=== PATIENT | female | born 1985 | race Caucasian/White ===

== ENCOUNTER 2020-09-10 18:07 | Emergency (ER) | payer OTHER, SELFPAY ==
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
[2020-09-10 18:15] VITALS: BP 164/100; PULSE 94; RESP 18; TEMP 36.7; O2SAT 100; BMI 33.2
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
[2020-09-10] MEDS: Cyclobenzaprine HCl 10 MG TABLET PO (19:38)
== END 2020-09-10 20:45 | disposition home or self-care (01) ==
PROVIDERS: Emergency Provider Internal Medicine; PCP Internal Medicine
DX: S39.012A Strain of muscle, fascia and tendon of lower back, initial encounter (principal); S16.1XXA Strain of muscle, fascia and tendon at neck level, initial encounter; V43.92XA Unspecified car occupant injured in collision with other type car in traffic accident, initial encounter; Y93.9 Activity, unspecified; Y92.414 Local residential or business street as the place of occurrence of the external cause; Y99.9 Unspecified external cause status
CPT/HCPCS: 72040; 72100; 99283

== ENCOUNTER 2021-04-23 14:33 | Emergency (ER) | payer OTHER, SELFPAY ==
[2021-04-23 15:57] VITALS: BP 131/82; PULSE 112; RESP 18; TEMP 36.7; O2SAT 98; BMI 32.5
[2021-04-23 16:12] LABS: Appearance Urine CLOUDY; Color Urine YELLOW; Glucose Urine UA NEG (NEG); Leukocyte Esterase Urine 1+ (NEG); Nitrite Urine NEG (NEG); Specific Gravity - Urine 1.025 (1.005-1.025); UACC Culture Trigger YES; Urine Blood 1+ (NEG); Urine Ketones NEG (NEG); Urine Protein TRACE MG/DL (NEG-TRACE)
[2021-04-23 16:24] LABS: Bacteria Urine 1+ /LPF; Calcium Oxalate Crystals Urine 1+ /LPF; Squamous Epithelial Cell Urine 1+ /LPF
--- NOTE | 2021-04-23 16:40 | ED_ITS ---
HPI - Female Genitourinary General Chief complaint: Urogenital-Female Stated complaint: uti Time Seen by Provider: 04/23/21 16:40 Source: patient Mode of arrival: ambulatory Limitations: no limitations History of Present Illness HPI Narrative: 36-year-old female who is presenting to the emergency room today for evaluation of painful urination as well as frequent urination. She has a history of recurring UTIs and states this feels exactly like her usual UTIs. She has no nausea vomiting diarrhea or abdominal pain. She denies fevers at home. She states her symptoms have been going on for 3 or 4 days. She is very uncomfortable. MD elicited complaint: dysuria and UTI Pertinent past history: recurrent UTIs Onset (ago): day(s) (3-4) Location of symptoms: suprapubic and urethra Severity: moderate Female Urogenital Radiation: Suprapubic Severity scale (1-10): 5 Quality of pain: burning Consistency: intermittent Vaginal discharge: none Vaginal bleeding: none Urinary symptoms: Dysuria, Urgency, Frequency and Hematuria Exacerbating factors: urination Relieving factors: none Associated symptoms: denies other symptoms Treatment prior to arrival: none Sexual activity: Yes Patient : No Related Data Previous Rx's Medication Instructions Recorded cyclobenzaprine 10 mg tablet 10 mg PO TID PRN #15 tab 09/10/20 cefuroxime axetil 250 mg tablet 250 mg PO BID 7 Days #14 tab 04/23/21 phenazopyridine 100 mg tablet 100 mg PO TID PRN #6 tab 04/23/21 (Pyridium) Allergies Allergy/AdvReac Type Severity Reaction Status Date / Time Sulfa (Sulfonamide Allergy Unknown RASH Verified 04/23/21 15:56 Antibiotics) [SULFA (SULFONAMIDE ANTIBIOTICS)] sulfamethoxazole Allergy Unknown RASH Verified 04/23/21 15:56 [From BACTRIM] trimethoprim [From BACTRIM] Allergy Unknown RASH Verified 04/23/21 15:56 Bactrim Allergy Unknown itching, Uncoded 09/04/11 00:00 rash Review of Systems Review of Systems: Constitutional: No Fever, No Chills Cardiovascular: No Chest Pain, No SOB Gastrointestinal: No Nausea, No Vomiting, No abdominal Pain Genitourinary: + Dysuria, + Urinary Frequency, + Hematuria Musculoskeletal: No joint pain, No Myalgias Skin: No Skin Lesions, No rash Heme/Lymph: No Bruising, No Lymphadenopathy Endocrine: No Polyuria, No Polydipsia PMFSH Past Medical History Medical History Dog bite Methadone dependence Migraines Social History Social History Alcohol intake: never Advance Directives: No Advance Directives Information Provided: No Patient : No Physical Exam Vital Signs: Vital Signs: Last Vital Signs Temp 98.1 F 04/23/21 15:57 Pulse 112 H 04/23/21 15:57 Resp 18 04/23/21 15:57 BP 131/82 04/23/21 15:57 Pulse Ox 98 04/23/21 15:57 Body Mass Index 32.5 Appearance: Alert. Oriented X3. No acute distress. HEENT: normal inspection CVS: Normal heart rate and rhythm. Pulses normal. Respiratory: No respiratory distress. Skin: Skin warm and dry. Normal skin color. Normal skin turgor. No rashes. Abdomen: Soft and with mild suprapubic tenderness. Pelvic exam deferred Extremities: Atraumatic x4. Neuro: Oriented X 3. Grossly normal. Ambulating with steady gait. Course Course Course Narrative: 36-year-old female with a history of recurring UTIs presenting with dysuria, frequency, slightly pink urine for the last 3-4 days. No vaginal discharge or concern for STI. Heart rate noted to be 110 on arrival and has normalized now. She is afebrile does not appear to be septic at this time. She reports her elevated heart rate due to running back and forth from the ER to her car. Her UA is consistent with infection. She is requesting Pyridium. We will start her on Ceftin for 1 week and add Pyridium as needed for pain. She is encouraged to follow-up with her primary care doctor and is stable for discharge from the emergency room MDM - Female Genitourinary Lab Data Labs: Lab Results 04/23/21 Range/Units 16:02 Urine Color YELLOW Urine Appearance CLOUDY Urine pH 6.0 (5.0-8.0) Ur Specific [place] 1.025 (1.005-1.025) Urine Protein TRACE (NEG-TRACE) MG/DL Urine Glucose (UA) NEG (NEG) MG/DL Urine Ketones NEG (NEG) MG/DL Urine Blood 1+ H (NEG) Urine Nitrite NEG (NEG) Ur Leukocyte Esterase 1+ H (NEG) Urine RBC 1-4 (0) /HPF Urine WBC 15-29 H (0-4) /HPF Ur Squamous Epith Cells 1+ /LPF Calcium Oxalate Crystal 1+ /LPF Urine Bacteria 1+ /LPF Discharge Plan Discharge Clinical Impression: Urinary tract infection Qualifiers: Urinary tract infection type: acute cystitis Hematuria presence: with hematuria Qualified Code(s): N30.01 - Acute cystitis with hematuria Patient Disposition: Home, Self-Care Instructions: Urinary Tract Infection in Women (ED) Additional Instructions: Your urine test today showed infection. Take the prescribed antibiotics as directed. Drink plenty of water. No sexual activity and all other symptoms are completely resolved and he completed the entire course of antibiotics. Follow-up with your doctor as needed. Prescriptions: New phenazopyridine [Pyridium] 100 mg tablet 100 mg PO TID PRN (Reason: pain) Qty: 6 RF: 0 cefuroxime axetil 250 mg tablet 250 mg PO BID 7 Days Qty: 14 RF: 0 No Action cyclobenzaprine 10 mg tablet 10 mg PO TID PRN (Reason: muscle spasm) Qty: 15 RF: 0
== END 2021-04-23 17:13 | disposition home or self-care (01) ==
PROVIDERS: Emergency Provider Emergency Medicine Emergency Medical Services; PCP Internal Medicine
DX: N30.01 Acute cystitis with hematuria (principal); R35.0 Frequency of micturition; R30.0 Dysuria; Z87.440 Personal history of urinary (tract) infections; Z79.899 Other long term (current) drug therapy
CPT/HCPCS: 81001; 87086; 99283; 99284

== ENCOUNTER 2021-09-22 20:28 | Emergency (ER) | payer OTHER, SELFPAY ==
[2021-09-22 20:59] VITALS: BP 108/62; PULSE 95; RESP 16; TEMP 36.8; O2SAT 98; BMI 31.7
[2021-09-22 21:21] LABS: IDNOW Serial# 55D5AD1C; Strep A Nucleic Acid Positive (Negative)
--- NOTE | 2021-09-22 22:59 | ED_ITS ---
HPI - General Adult General Chief complaint: General Medical Stated complaint: Sore throat/Ear ache Time Seen by Provider: 09/22/21 22:49 Source: patient Mode of arrival: ambulatory Limitations: no limitations History of Present Illness HPI narrative: This is a 36-year-old female presenting to the emergency department with bilateral ear pain, sore throat times 2-3 days worsening. Patient tells me she gets strep throat frequently. This feels like her typical strep throat. She reports subjective fevers and chills. She denies chest pain, shortness of breath, nausea vomiting and abdominal pain. She tells me that she is able to swallow well, she is not having issues controlling her secretions. Speaking in full sentences appears to be in no acute distress. Onset (ago): day(s) (3) Location: mouth Radiation: non-radiation Severity: severe Severity scale (1-10): 10 Quality: burning and constant Pain Consistency: constant Relieving factors: none Exacerbating factors: none Associated symptoms: denies other symptoms Treatments prior to arrival: none Related Data Previous Rx's Medication Instructions Recorded cyclobenzaprine 10 mg tablet 10 mg PO TID PRN #15 tab 09/10/20 cefuroxime axetil 250 mg tablet 250 mg PO BID 7 Days #14 tab 04/23/21 phenazopyridine 100 mg tablet 100 mg PO TID PRN #6 tab 04/23/21 (Pyridium) amoxicillin 500 mg capsule 500 mg PO BID 10 Days #20 cap 09/22/21 prednisone 20 mg tablet 20 mg PO DAILY 5 Days #5 tab 09/22/21 Allergies Allergy/AdvReac Type Severity Reaction Status Date / Time Sulfa (Sulfonamide Allergy Unknown RASH Verified 04/23/21 15:56 Antibiotics) [SULFA (SULFONAMIDE ANTIBIOTICS)] sulfamethoxazole Allergy Unknown RASH Verified 04/23/21 15:56 [From BACTRIM] trimethoprim [From BACTRIM] Allergy Unknown RASH Verified 04/23/21 15:56 Bactrim Allergy Unknown itching, Uncoded 09/04/11 00:00 rash Review of Systems Review of Systems: Constitutional : No Weight loss, No Fever, No Chills, No Fatigue, No Malaise ENT/Mouth : + sore throat, No Rhinorrhea Eyes: No Eye Pain, No Swelling, No Redness Cardiovascular : No Chest Pain, No SOB, No Dyspnea on Exertion, No Orthopnea, No Edema, No Palpitations Respiratory : No Cough, No Sputum, No Wheezing Gastrointestinal : No Nausea, No Vomiting, No Diarrhea, No Constipation, No abdominal Pain, No Hematochezia, No Melena Genitourinary : No Dysuria, No Urinary Frequency, No Hematuria, Musculoskeletal : No joint pain, No Myalgias, No Joint Swelling Skin : No Skin Lesions, No rash Neuro : No Weakness, No Numbness, No Dizziness, No Headache Psych : No Anxiety/Panic, No Depression All other systems reviewed and are negative Yes all other systems are reviewed and are negative [facility] [place] Past Medical History Attestation statement: The following information was validated with the patient. Source: old records reviewed and nursing notes reviewed Medical History Dog bite Methadone dependence Migraines Social History Social History Alcohol intake: never Advance Directives: No Advance Directives Information Provided: No Patient : No Physical Exam ED Vital Signs: Vital Signs - 24 hr 09/22/21 20:59 Temperature 98.3 F Pulse Rate 95 Respiratory Rate 16 Blood Pressure 108/62 Pulse Oximetry 98 BMI result Body Mass Index 31.7 Appearance: Alert.? Oriented X3.? No acute distress.? Patient speaking in full sentences controlling secretions well appears to be comfortable and in no acute distress. Head: Normocephalic, atraumatic, no step-offs or deformities Eyes: Pupils equal, round and reactive to light.? ENT: + bilateral tonsillar exudates, edema to bilateral tonsils right worse than left. Submandibular adenopathy bilaterally. Bilateral tympanic membranes pearly white, clear landmarks, nor erythema, effusions or bulging of the tympanic membranes. Uvula is midline. No signs of peritonsillar abscess. No signs of epiglottitis. Neck: Normal inspection.? Neck supple.? CVS: Normal heart rate and rhythm.? Pulses normal.? Respiratory: No respiratory distress.? Breath sounds normal.? Abdomen: Soft and nontender.? Skin: Skin warm and dry.? Normal skin color.? Normal skin turgor.? Extremities: No lower extremity edema.? No calf ttp. 5/5 strength to bilateral upper and lower extremities Back: No midline tenderness, no C-spine tenderness, full range of motion, no CVA tenderness bilaterally Neuro: Oriented X 3.? No motor deficit.? No sensory deficit. CN 2-12 intact Course Reevaluation(s) Reevaluation #1: Rapid strep positive. Will treat patient for bacterial pharyngitis. Given her strict return precautions and advised her to return with new or worsening symptoms. Outlined these return precautions on her discharge. Educated patient on plan answered all questions. Comfortable discharge home. Time: 23:05 Medical Decision Making [facility] Narrative Medical decision making narrative: 2300 36 yo f presents w/ sore throat and subjective fevers and chills X3 days. Frequently gets strep throat. Physical examination with bilateral tonsillar exudates, edema to bilateral tonsils right worse than left. Submandibular adenopathy bilaterally. Bilateral tympanic membranes pearly white, clear landmarks, nor erythema, effusions or bulging of the tympanic membranes. Uvula is midline. No signs of peritonsillar abscess. No signs of epiglottitis. Based off patient history and physical examination this is likely strep throat. Will confirm with rapid strep. Unlikely epiglottitis or peritonsillar abscess. Low suspicion for mononucleosis. Plan at this time is to obtain a rapid strep. Medical Records Medical records reviewed: Yes I reviewed the patient's medical records. Lab Data Lab results reviewed: Yes I reviewed the patient's lab results. Labs: Lab Results 09/22/21 Range/Units 21:07 S. pyogenes GrpA SHAYY Positive A (Negative) Critical Care Time Critical Care Time Critical Care Time: No Discharge Plan Discharge Clinical Impression: Strep pharyngitis Patient Disposition: Home, Self-Care Instructions: Pharyngitis (ED), Strep Throat (DC) Additional Instructions: Take your medications as prescribed. If you were prescribed antibiotics today, it is important that you take your medication to their entirety, do not skip any doses, do not finish them early. Follow-up with your primary care provider this week. Return to the emergency department with new or worsening symptoms. Such as difficulty breathing, trouble swallowing, chest pain, shortness of breath, fevers, chills, nausea vomiting. You can take ibuprofen every 6 hours Tylenol every 4 as needed for pain or fever. In case of emergency call 911 Prescriptions: New amoxicillin 500 mg capsule 500 mg PO BID 10 Days Qty: 20 0RF prednisone 20 mg tablet 20 mg PO DAILY 5 Days Qty: 5 0RF No Action cyclobenzaprine 10 mg tablet 10 mg PO TID PRN (Reason: muscle spasm) Qty: 15 0RF phenazopyridine [Pyridium] 100 mg tablet 100 mg PO TID PRN (Reason: pain) Qty: 6 0RF cefuroxime axetil 250 mg tablet 250 mg PO BID 7 Days Qty: 14 0RF Referrals: Mechelle Patel MD [Primary Care Provider] - 2 days Stand Alone Forms: Work/School Release
[2021-09-22] MEDS: Lidocaine HCl Viscous 2 % 15 ML SOLUTION MUCOUS MEM (23:12)
--- NOTE | 2021-09-22 23:16 | PC.NURSE ---
Reviewed discharge instructions with pt. pt verbalized understanding.
== END 2021-09-22 23:17 | disposition home or self-care (01) ==
PROVIDERS: Emergency Provider Emergency Medicine Emergency Medical Services; PCP Internal Medicine
DX: J02.0 Streptococcal pharyngitis (principal); H92.03 Otalgia, bilateral; Z79.899 Other long term (current) drug therapy
CPT/HCPCS: 36415; 87651; 99283

== ENCOUNTER 2022-02-02 01:36 | Emergency (ER) | payer OTHER, SELFPAY ==
[2022-02-02 02:43] VITALS: BP 129/77; PULSE 71; RESP 20; TEMP 36.8; O2SAT 97; BMI 31.9
[2022-02-02 02:53] LABS: Hematocrit 40.6 % (37.0-47.0); Hemoglobin 13.5 g/dl (12.0-16.0); Mean Corpuscular HGB Conc 33.3 g/dl (31.0-35.0); Mean Corpuscular Hemoglobin 29.7 pg (27.0-33.0); Mean Corpuscular Volume 89.2 fL (80.0-98.0); Mean Platelet Volume 9.7 fL (9.4-12.3); Platelet Count 254 X10*3/uL (160-400); Red Blood Count 4.55 X10*6/uL (4.20-5.50); Red Cell Distribution Width 13.9 % (11.0-16.0); White Blood Count 9.1 X10*3/uL (4.8-10.8)
[2022-02-02 03:14] LABS: Alanine Aminotransferase 31 U/L (0-31); Albumin Level 4.1 g/dL (3.5-5.0); Alkaline Phosphatase 77 U/L (39-117); Anion Gap 13 (12-20); Aspartate Amino Transferase 30 U/L (5-31); Bilirubin Total 0.3 mg/dL (0.0-1.0); Blood Urea Nitrogen 11 mg/dL (9-16); Calcium 8.9 mg/dL (8.4-10.2); Carbon Dioxide 22 mmol/L (22-29); Chloride 106 mmol/L (96-108); Creatinine Clr Calc Pharmacy 109.1; Estimated Glomerular Filt Rate > 60; Glucose Random 138 mg/dL (60-115); Potassium 3.7 mmol/L (3.3-5.1); Sodium 137 mmol/L (135-145); Total Protein 7.2 g/dL (6.5-8.0)
--- NOTE | 2022-02-02 08:06 | ED_ITS ---
HPI - Animal Bite General Chief Complaint: Animal Bite Stated Complaint: L foot swollen,legs swelling post vascular surgery Time Seen by Provider: 02/02/22 07:48 Source: patient Mode of arrival: ambulatory Limitations: no limitations History of Present Illness HPI narrative: Left foot spider bite with infection. Two days ago patient was bitten by spider, patient also been complaining of edema of both legs, patient been having issue with vascular disease and lower extremities chronic edema, patient declined any recent travel, no pain in the [place] for, no difficulty breathing, no chest pain. Related Data Previous Rx's Medication Instructions Recorded cyclobenzaprine 10 mg tablet 10 mg PO TID PRN muscle spasm #15 09/10/20 tabs cefuroxime axetil 250 mg tablet 250 mg PO BID 7 days #14 tabs 04/23/21 phenazopyridine 100 mg tablet 100 mg PO TID PRN pain 6 doses #6 04/23/21 (Pyridium) tabs amoxicillin 500 mg capsule 500 mg PO BID 10 days #20 caps 09/22/21 prednisone 20 mg tablet 20 mg PO DAILY 5 days #5 tabs 09/22/21 doxycycline hyclate 100 mg tablet 100 mg PO BID #20 tabs 02/02/22 furosemide 20 mg tablet (Lasix) 20 mg PO DAILY #10 tabs 02/02/22 Allergies Allergy/AdvReac Type Severity Reaction Status Date / Time Sulfa (Sulfonamide Allergy Unknown RASH Verified 04/23/21 15:56 Antibiotics) [SULFA (SULFONAMIDE ANTIBIOTICS)] sulfamethoxazole Allergy Unknown RASH Verified 04/23/21 15:56 [From BACTRIM] trimethoprim [From BACTRIM] Allergy Unknown RASH Verified 04/23/21 15:56 Bactrim Allergy Unknown itching, Uncoded 09/04/11 00:00 rash Review of Systems Review of Systems: All other systems are reviewed and are negative Constitutional: Reports as per HPI and Reports no additional constitutional complaints Eyes: Reports as per HPI and Reports no additional eye complaints Reports system reviewed and no additional complaints, except as documented Cardiovascular: Reports as per HPI and Reports no additional cardiovascular complaints Respiratory: Reports as per HPI and Reports no additional respiratory complaints Gastrointestinal: Reports as per HPI and Reports no additional gastrointestinal complaints Genitourinary: Reports no additional female genitourinary complaints Musculoskeletal: Reports no additional musculoskeletal complaints Skin/Breast: Reports system reviewed and no additional complaints, except as docu Psychiatric: Reports no additional psychiatric complaints Endocrine: Reports no additional endocrine complaints Hematologic/Lymphatic: Reports no additional hematologic/lymphatic complaints Allergic/Immunologic: Reports no additional allergic/immunologic complaints Reports system reviewed and no additional complaints, except as documented and Reports Abnormal speech present [facility] Past Medical History Medical History Dog bite Methadone dependence Migraines Social History Social History Alcohol intake: never Advance Directives: No Advance Directives Information Provided: No Physical Exam ED Vital Signs: Vital Signs - 24 hr 02/02/22 02:43 Temperature 98.2 F Pulse Rate 71 Respiratory Rate 20 Blood Pressure 129/77 Pulse Oximetry 97 Oxygen Delivery Method Room Air BMI result Body Mass Index 31.9 Vital signs have been reviewed as appeared to be correct. Blood pressure normal. Heart rate normal. Respiration rate normal. Temperature normal. Oxygen saturation normal. Appearance: Alert. Oriented X3. No acute distress. Head: Normal external exam. Normocephalic. Atraumatic. No Wagner signs noted. No raccoon eyes noted Eyes: PERRLA. EOMI. Conjunctiva and sclera normal. Eyelids normal. ENT: TM's Normal. Pharynx normal. Uvula midline. Moist mucous membranes. No trismus noted. No drooling noted. No muffled voice noted. Neck: Normal inspection. Neck supple. FROM. No adenopathy. Thyroid Normal. No meningeal signs. No neck mass noted. CVS: Normal heart rate and rhythm. Heart sound normal. No murmurs noted. Pulses normal throughout. Respiratory: No respiratory distress. Painless inspiration. Breath sounds normal. No wheezes/rales/rhonchi noted. Chest nontender. No accessory muscle usage noted or decreased air movement noted. Abdomen: Soft and nontender. Bowel sounds normal in all 4 quadrants. No distention noted. No organomegaly noted. No visible injury noted. Back: No CVA tenderness. Full range of motion noted. Skin: Skin warm and dry. Normal skin color. Normal skin turgor. No rashes/lesions/lacerations noted. Extremities: Left foot swelling, 5 x 5 cm area of redness and hotness and tenderness, no fluctuation. Neuro: Oriented X 3. Cranial nerve exam: II-XII are grossly intact No motor deficit. No sensory deficit. Reflexes normal. Course Course Course Narrative: 1. Left leg spider bite infection with cellulitis will start the patient on doxycycline. 2. Chronic lymphedema in bilateral feet with no concern of DVT will start the patient on low-dose of daily Lasix and follow-up with PCP. MDM - Animal Bite Lab Data Result diagrams: 02/02/22 02:41 02/02/22 02:41 Labs: Lab Results 02/02/22 02/02/22 Range/Units 02:41 02:41 WBC 9.1 (4.8-10.8) X10*3/uL RBC 4.55 (4.20-5.50) X10*6/uL Hgb 13.5 (12.0-16.0) g/dl Hct 40.6 (37.0-47.0) % MCV 89.2 (80.0-98.0) fL MCH 29.7 (27.0-33.0) pg MCHC 33.3 (31.0-35.0) g/dl RDW 13.9 (11.0-16.0) % Plt Count 254 (160-400) X10*3/uL MPV 9.7 (9.4-12.3) fL Absolute Nucleated RBC 0.000 (0.0-0.012) X10*3/uL Nucleated RBC % (auto) 0.0 (0.0-0.2) /100WBC Sodium 137 (135-145) mmol/L Potassium 3.7 (3.3-5.1) mmol/L Chloride 106 (96-108) mmol/L Carbon Dioxide 22 (22-29) mmol/L Anion Gap 13 (12-20) BUN 11 (9-16) mg/dL Creatinine 0.68 (0.5-1.4) mg/dL Estim Creat Clear Calc 109.1 Estimated GFR > 60 Random Glucose 138 H (60-115) mg/dL Calcium 8.9 (8.4-10.2) mg/dL Total Bilirubin 0.3 (0.0-1.0) mg/dL AST 30 (5-31) U/L ALT 31 (0-31) U/L Alkaline Phosphatase 77 (39-117) U/L Total Protein 7.2 (6.5-8.0) g/dL Albumin 4.1 (3.5-5.0) g/dL Discharge Plan Discharge Clinical Impression: Infected insect bite, Leg edema Patient Disposition: Home, Self-Care Instructions: Cellulitis (ED) Prescriptions: New doxycycline hyclate 100 mg tablet 100 mg PO BID Qty: 20 0RF furosemide [Lasix] 20 mg tablet 20 mg PO DAILY Qty: 10 0RF No Action cyclobenzaprine 10 mg tablet 10 mg PO TID PRN (Reason: muscle spasm) Qty: 15 0RF phenazopyridine [Pyridium] 100 mg tablet 100 mg PO TID PRN (Reason: pain) Qty: 6 0RF cefuroxime axetil 250 mg tablet 250 mg PO BID 7 Days Qty: 14 0RF amoxicillin 500 mg capsule 500 mg PO BID 10 Days Qty: 20 0RF prednisone 20 mg tablet 20 mg PO DAILY 5 Days Qty: 5 0RF Referrals: Mechelle Patel MD [Primary Care Provider] -
[2022-02-02 08:11] VITALS: BP 117/68; PULSE 70; RESP 19; TEMP 36.5; O2SAT 99
== END 2022-02-02 08:35 | disposition home or self-care (01) ==
PROVIDERS: Emergency Provider Emergency Medicine; PCP Internal Medicine
DX: S80.862A Insect bite (nonvenomous), left lower leg, initial encounter (principal); W57.XXXA Bitten or stung by nonvenomous insect and other nonvenomous arthropods, initial encounter; L03.116 Cellulitis of left lower limb; R60.0 Localized edema; Z79.899 Other long term (current) drug therapy; Y93.9 Activity, unspecified; Y92.9 Unspecified place or not applicable; Y99.9 Unspecified external cause status
CPT/HCPCS: 36415; 80053; 85027; 99283

== ENCOUNTER 2022-09-11 00:58 | Inpatient (IN) | payer OTHER, SELFPAY ==
--- NOTE | ~2022-09-11 | CT_ITS ---
EXAMINATION: CT FOREARM WITH CONTRAST, RIGHT CLINICAL INFORMATION: Necrotizing fasciitis. Question abscess. COMPARISON: None TECHNIQUE: Contiguous axial CT images of the right forearm were obtained following the IV administration of 85 mL Omnipaque 350 contrast. Multiplanar reformats were provided and reviewed. This CT examination was performed using dose optimization techniques as appropriate, variously including the following: *Automated exposure control *Adjustment of mA and/or kV according to patient size (this includes techniques or standardized protocols for targeted exams where dose is matched to indication/reason for exam; i.e. extremities or head) *Use of iterative reconstruction technique DLP: 148 mGy-cm FINDINGS: No acute fracture or dislocation. No joint space narrowing or marginal osteophytes. No concerning lytic or blastic osseous lesion. No periosteal reaction or cortical erosion to suggest osteomyelitis. In the region of the basilic vein at the level of the distal ulnar diaphysis, there is a peripherally enhancing fluid collection measuring approximately 1.6 x 1.2 x 2.9 cm (AP x mL x cc). Findings are consistent with abscess formation. No associated soft tissue air/emphysema. There is adjacent subcutaneous stranding with mild circumferential subcutaneous edema. No enhancing soft tissue mass. Otherwise, the visualized vasculature appears unremarkable. The visualized muscles and tendons are grossly intact. CT/CT forearm RT w IV con IMPRESSION: Peripherally enhancing fluid collection in the region of the basilic vein at the level of the distal ulnar diaphysis measuring up to 2.9 cm in greatest dimension. Findings are consistent with abscess formation. No associated soft tissue air/emphysema. No acute osseous abnormality. No periosteal reaction or cortical erosion to suggest osteomyelitis.
[2022-09-11 01:33] VITALS: BP 127/72; PULSE 104; RESP 20; TEMP 36.6; O2SAT 98; BMI 32.5
[2022-09-11 02:55] LABS: Alanine Aminotransferase 46 U/L (0-31); Albumin Level 4.1 g/dL (3.5-5.0); Alkaline Phosphatase 94 U/L (39-117); Anion Gap 13 (12-20); Aspartate Amino Transferase 37 U/L (5-31); Bilirubin Total 0.5 mg/dL (0.0-1.0); Blood Urea Nitrogen 9 mg/dL (9-16); Calcium 9.3 mg/dL (8.4-10.2); Carbon Dioxide 23 mmol/L (22-29); Chloride 104 mmol/L (96-108); Creatinine Clr Calc Pharmacy 97.7; Estimated Glomerular Filt Rate > 60; Glucose Random 126 mg/dL (60-115); Potassium 4.2 mmol/L (3.3-5.1); Sodium 136 mmol/L (135-145); Total Protein 7.6 g/dL (6.5-8.0)
--- NOTE | 2022-09-11 03:29 | ED_ITS ---
HPI - General Adult General Chief complaint: Animal Bite Stated complaint: swollen arm & rash Time Seen by Provider: 09/11/22 03:15 Source: patient Mode of arrival: ambulatory Limitations: no limitations History of Present Illness HPI narrative: Patient IVDA cocaine user noticed swelling of the right forearm for last 3 days got worse in last 24 hours spreading to the elbow no fever no chills last injection in the right forearm was 4 days ago no pain in the hand or elbow. Patient also noticed rash is all over exposed area patient was at her friend's house who has Dog Related Data Previous Rx's Medication Instructions Recorded cyclobenzaprine 10 mg tablet 10 mg PO TID PRN muscle spasm #15 09/10/20 tabs cefuroxime axetil 250 mg tablet 250 mg PO BID 7 days #14 tabs 04/23/21 phenazopyridine 100 mg tablet 100 mg PO TID PRN pain 6 doses #6 04/23/21 (Pyridium) tabs amoxicillin 500 mg capsule 500 mg PO BID 10 days #20 caps 09/22/21 prednisone 20 mg tablet 20 mg PO DAILY 5 days #5 tabs 09/22/21 doxycycline hyclate 100 mg tablet 100 mg PO BID #20 tabs 02/02/22 furosemide 20 mg tablet (Lasix) 20 mg PO DAILY #10 tabs 02/02/22 Allergies Allergy/AdvReac Type Severity Reaction Status Date / Time Sulfa (Sulfonamide Allergy Unknown RASH Verified 09/11/22 01:43 Antibiotics) [SULFA (SULFONAMIDE ANTIBIOTICS)] sulfamethoxazole Allergy Unknown RASH Verified 09/11/22 01:43 [From BACTRIM] trimethoprim [From BACTRIM] Allergy Unknown RASH Verified 09/11/22 01:43 Bactrim Allergy Unknown itching, Uncoded 09/04/11 00:00 rash Review of Systems Review of Systems: Yes all other systems are reviewed and are negative PMFSH Past Medical History Medical History Dog bite Methadone dependence Migraines Social History Social History Alcohol intake: current Smoked in Last 30 Days: Yes Use of substances other than those prescribed or required for medical reasons: Yes Substance Use Type: Heroin Advance Directives: No Advance Directives Information Provided: Yes Physical Exam ED Vital Signs: Vital Signs - 24 hr 09/11/22 01:33 Temperature 97.9 F Pulse Rate 104 H Respiratory Rate 20 Blood Pressure 127/72 Pulse Oximetry 98 Oxygen Delivery Method Room Air BMI result Body Mass Index 32.5 Appearance: Alert. Oriented X3. No acute distress. Eyes: PERRLA, No Nystagmus ENT: Pharynx normal. Oral Mucosa moist Neck: Normal inspection. Neck supple. CVS: Normal heart rate and rhythm. Pulses normal. Respiratory: No respiratory distress. Equal air entry bilateral, no wheezing/rales/rhonchi Abdomen: Soft and nontender. Bowel sounds are present, no mass palpable, no CVA tenderness Skin: Skin warm and dry. Normal skin color. Normal skin turgor. Insect bite on exposed area Extremities: No lower extremity edema. No calf tenderness right forearm swollen with induration and warmth elbow joint normal good range of movement hand good range of movement patient can make fist Neuro: Oriented X 3. No motor deficit. Extrem Elbow/forearm/wrist images: 1. Fullness and swelling of right forearm tender to touch local warmth good range of movements of elbow joint and wrist no hypersensitivity neurovascular intact Medications Administered Discontinued Medications Generic Name Dose Route Start Last Admin Trade Name Freq PRN Reason Stop Dose Admin Diphenhydramine HCl 25 mg 09/11/22 04:20 09/11/22 04:41 Diphenhydramine Hcl 50 Mg/Ml Vial IVPUSH 09/11/22 04:21 25 mg ONCE ONE Administration Sodium Chloride 1,000 mls @ 999 mls/hr 09/11/22 03:30 09/11/22 04:41 Ns IV 09/11/22 04:30 999 mls/hr .Q1H1M ONE Administration Vancomycin HCl 2,000 mg in 520 mls @ 260 mls/hr 09/11/22 03:45 09/11/22 04:42 Vancomycin/Ns IV 09/11/22 05:44 260 mls/hr ONCE ONE Administration Piperacillin Sod/Tazobactam 50 mls @ 100 mls/hr 09/11/22 03:31 09/11/22 04:41 Sod 3.375 gm/ Sodium Chloride IV 09/11/22 04:00 100 mls/hr ONCE ONE Administration Iohexol 85 ml 09/11/22 07:35 09/11/22 07:36 Iohexol 350 Mg/Ml 100 Ml Infus..Btl IV 09/11/22 07:36 85 ml ONCE ONE Administration Procedures Abscess I/D Site: upper extremity Side (if applicable): right Technique: needle aspiration Amount of fluid expressed (mL): 3 Sent for culture/gram staining?: Yes Irrigation: No Packing used?: none Medical Decision Making Medical Decision Making [facility] Narrative: Needle aspiration of forearm abscess was done and 3 cc of pus drained at this time there is no findings of compartment syndrome diffuse swelling is present will start patient on vancomycin and Zosyn 7 am patient with normal CBC normal lactic acid but significant swelling of the right forearm with abscess and cellulitis abscess drained by needle aspiration. Will do CT scan of the forearm to rule out the deeper fluid collection at this time with no signs of necrotizing fasciitis or compartment syndrome . Case discussed with hospitalist will admit the patient will also give tetanus shot Differential Diagnosis Differential Diagnoses: The differential diagnosis associated with the presentation includes Cellulitis/abscess/necrotizing fasciitis Consult Healthcare Provider Management of the patient was discussed with: Hospitalist Lab Data [facility] Lab Attestation statement: I reviewed the patient's lab results. 09/11/22 02:32 09/11/22 02:32 Labs: Lab Results 09/11/22 09/11/22 09/11/22 Range/Units 02:32 03:59 05:20 WBC 9.5 (4.8-10.8) X10*3/uL RBC 4.10 L (4.20-5.50) X10*6/uL Hgb 12.6 (12.0-16.0) g/dl Hct 37.5 (37.0-47.0) % MCV 91.5 (80.0-98.0) fL MCH 30.7 (27.0-33.0) pg MCHC 33.6 (31.0-35.0) g/dl RDW 13.7 (11.0-16.0) % Plt Count 260 (160-400) X10*3/uL MPV 10.3 (9.4-12.3) fL Immature Gran % (Auto) 0.3 (0.0-0.4) % Neut % (Auto) 48.1 (45-73) % Lymph % (Auto) 43.1 H (20-40) % [place] % (Auto) 6.4 (2-11) % Eos % (Auto) 1.8 (0-4) % Baso % (Auto) 0.3 (0-2) % Lymph # (Auto) 4.1 (1.2-4.9) X10*3/uL [place] # (Auto) 0.6 (0.1-1.2) X10*3/uL Eos # (Auto) 0.2 (0.0-0.4) X10*3/uL Baso # (Auto) 0.0 (0.0-0.2) X10*3/uL Abs Immat Gran (auto) 0.03 (0.00-0.03) X10*3/uL Absolute Neuts (auto) 4.6 (2.0-8.3) x10*3/uL Absolute Nucleated RBC 0.000 (0.0-0.012) X10*3/uL Nucleated RBC % (auto) 0.0 (0.0-0.2) /100WBC Sodium 136 (135-145) mmol/L Potassium 4.2 (3.3-5.1) mmol/L Chloride 104 (96-108) mmol/L Carbon Dioxide 23 (22-29) mmol/L Anion Gap 13 (12-20) BUN 9 (9-16) mg/dL Creatinine 0.76 (0.5-1.4) mg/dL Estim Creat Clear Calc 97.7 Estimated GFR > 60 Random Glucose 126 H (60-115) mg/dL Lactic Acid 1.0 (0.5-2.0) mmol/L Calcium 9.3 (8.4-10.2) mg/dL Total Bilirubin 0.5 (0.0-1.0) mg/dL AST 37 H (5-31) U/L ALT 46 H (0-31) U/L Alkaline Phosphatase 94 (39-117) U/L Total Creatine Kinase 61 (26-140) U/L Total Protein 7.6 (6.5-8.0) g/dL Albumin 4.1 (3.5-5.0) g/dL Discharge Plan Discharge Clinical Impression: Abscess of forearm, right, Cellulitis of forearm, right Patient Disposition: Admitted As Inpatient
[2022-09-11] MEDS: 0.9 % Sodium Chloride 1,000 ML 999 ML IV (04:41)
[2022-09-11] MEDS: Piperacillin Sodium/Tazobactam 3.375 GM in 0.9 % Sodium Chloride 50 ML IV (04:41)
[2022-09-11] MEDS: diphenhydrAMINE HCL 50 MG/ML VIAL 25 MG IVPUSH ×3 (04:41→21:54)
--- NOTE | 2022-09-11 04:53 | PC.NURSE ---
I assumed nursing care of Adali upon her arrival to bed 14 from the waiting room. She presented for evaluation of abscess to R forearm and generalized body pruritis. She states i slept over at a friends house last night and the night before. I don't know if i got bed bugs or something. Consuelo ORNELAS aware. Adali is alert, oriented x 3, calm and cooperative. She makes eye contact with RN. She is ambulatory independently and with steady gait. Prior to meeting this pt she was assessed by Consuelo ORNELAS who obtained a wound culture from R forearm wound. Specimen was sent to the lab. At that time Consuelo ORNELAS was attempting to obtain a peripheral IV via ultrasound guidance. After some time he was able to obtain a L A/C #20 gauge. IVF's/IVAbx infusing per MD order. No chest pain. No SOB. We will continue to monitor Adali.
[2022-09-11 05:33] LABS: Basophils Percent Auto 0.3 % (0-2); Eosinophils Absolute Auto 0.2 X10*3/uL (0.0-0.4); Eosinophils Percent Auto 1.8 % (0-4); Hematocrit 37.5 % (37.0-47.0); Hemoglobin 12.6 g/dl (12.0-16.0); Imm Gran Abs Auto 0.03 X10*3/uL (0.00-0.03); Imm Gran Pct Auto 0.3 % (0.0-0.4); Lymphocytes Absolute Auto 4.1 X10*3/uL (1.2-4.9); Lymphocytes Percent Auto 43.1 % (20-40); Mean Corpuscular HGB Conc 33.6 g/dl (31.0-35.0); Mean Corpuscular Hemoglobin 30.7 pg (27.0-33.0); Mean Corpuscular Volume 91.5 fL (80.0-98.0); Mean Platelet Volume 10.3 fL (9.4-12.3); Monocytes Absolute Auto 0.6 X10*3/uL (0.1-1.2); Monocytes Percent Auto 6.4 % (2-11); Neutrophils Absolute Auto 4.6 x10*3/uL (2.0-8.3); Neutrophils Percent Auto 48.1 % (45-73); Platelet Count 260 X10*3/uL (160-400); Red Cell Distribution Width 13.7 % (11.0-16.0); White Blood Count 9.5 X10*3/uL (4.8-10.8)
[2022-09-11 05:35] LABS: MANUAL DIFF FLAG NO
[2022-09-11] MEDS: iohexoL 350 MG/ML 100 ML INFUS..BTL 85 ML IV (07:36)
[2022-09-11 08:01] LABS: COVID-19 Test Negative (Negative); IDNOW Serial# BCCEAD1C
--- NOTE | 2022-09-11 08:22 | PHA.MEDREC ---
Pharmacy Consult ? Medication Reconciliation Pharmacy has completed the medication reconciliation. Patient states no home meds.
[2022-09-11] MEDS: Diphth,Pertus(ACell),Tet Adult 0.5 ML SYRINGE IM (08:24)
--- NOTE | 2022-09-11 08:41 | P.HPHOSP_ITS ---
History of Present Illness Date of Service: 09/11/22 Chief Complaint: right forearm pain and swelling 37F PMH opiate and cocaine dependence, uses IV, presented with 2 days right forearm swelling, pain, tenderness, ertyhema. pateint reports injecting into that arm. denies fever, chills. in ED I and D revealed pus, CT arm pending, not septic. Review of Systems Review of Systems: Yes all other systems are reviewed and are negative [facility] Medical History Dog bite Methadone dependence Migraines Social History Alcohol intake: current Smoked in Last 30 Days: Yes Use of substances other than those prescribed or required for medical reasons: Yes Substance Use Type: Heroin Advance Directives: No Advance Directives Information Provided: Yes Meds Allergies Allergy/AdvReac Type Severity Reaction Status Date / Time Sulfa (Sulfonamide Allergy Unknown RASH Verified 09/11/22 01:43 Antibiotics) [SULFA (SULFONAMIDE ANTIBIOTICS)] sulfamethoxazole Allergy Unknown RASH Verified 09/11/22 01:43 [From BACTRIM] trimethoprim [From BACTRIM] Allergy Unknown RASH Verified 09/11/22 01:43 Active Medications: Current Medications Pharmacy Consult (Consult Rx Perform Med Rec) 1 each MISCELLANE ONCE PRN PRN Reason: Consult order Home Medications Medication Instructions Recorded Confirmed Last Taken Type No Known Home Meds 09/11/22 09/11/22 Unknown History Physical Exam Vital Signs and Narrative: Vital Signs: Last Vital Signs Temp 97.9 F 09/11/22 01:33 Pulse 104 H 09/11/22 01:33 Resp 20 09/11/22 01:33 BP 127/72 09/11/22 01:33 Pulse Ox 98 09/11/22 01:33 O2 Del Method 09/11/22 01:33 BMI result Body Mass Index 32.5 General: AO X 3, no acute distress Resp: CTA bilateral, no accessory muscles used CVS: S1,S2,RRR GI: soft, non tender, non distended Neuro: motor grossly intact, alert Psych: appropriate affect, appropriate insight right forearm tender, swollen, erythema Results Labs 09/11/22 05:20 09/11/22 02:32 Labs: Laboratory Results - last 24 hr 09/11/22 09/11/22 09/11/22 02:32 03:59 05:20 MCV 91.5 MCH 30.7 MCHC 33.6 RDW 13.7 Plt Count 260 MPV 10.3 Immature Gran % (Auto) 0.3 Neut % (Auto) 48.1 Lymph % (Auto) 43.1 H [place] % (Auto) 6.4 Eos % (Auto) 1.8 Baso % (Auto) 0.3 Lymph # (Auto) 4.1 [place] # (Auto) 0.6 Eos # (Auto) 0.2 Baso # (Auto) 0.0 Abs Immat Gran (auto) 0.03 Absolute Neuts (auto) 4.6 Absolute Nucleated RBC 0.000 Nucleated RBC % (auto) 0.0 Anion Gap 13 Estim Creat Clear Calc 97.7 Estimated GFR > 60 Random Glucose 126 H Lactic Acid 1.0 Calcium 9.3 Total Bilirubin 0.5 AST 37 H ALT 46 H Alkaline Phosphatase 94 Total Creatine Kinase 61 Total Protein 7.6 Albumin 4.1 COVID-19 (BRENDAN) COVID-19 Clin Com 09/11/22 07:36 MCV MCH MCHC RDW Plt Count MPV Immature Gran % (Auto) Neut % (Auto) Lymph % (Auto) [place] % (Auto) Eos % (Auto) Baso % (Auto) Lymph # (Auto) [place] # (Auto) Eos # (Auto) Baso # (Auto) Abs Immat Gran (auto) Absolute Neuts (auto) Absolute Nucleated RBC Nucleated RBC % (auto) Anion Gap Estim Creat Clear Calc Estimated GFR Random Glucose Lactic Acid Calcium Total Bilirubin AST ALT Alkaline Phosphatase Total Creatine Kinase Total Protein Albumin COVID-19 (BRENDAN) Negative COVID-19 Clin Com See Note Assessment and Plan (1) Abscess of forearm, right: Status: Acute Plan 37F polysubtance dependence presented with right forearm pain and swelling right forearm abscess and cellulitis due to IVDA vanc, follow up cultures, follow up CT polysubtances dependence addiction eval elevated transaminases check for viral hepatitis and hiv obesity weight loss recommended dvt prophylaxis - lovenox full code patient with significant forearm celluliitis complicated by abscess, risk for bacteremia and sepsis due to ivda, therefore, expected to require atleast 2 midnights inpatient Time Spent With Patient Time: Total time managing care of this patient today ____ minutes. Quality Stroke Does the patient have a stroke diagnosis?: No VTE Prior VTE?: No VTE Risk Level:: Medical - moderate - high VTE Device Contraindication: Treatment Not Indicated VTE Drug Contraindication: N/A - Med Ordered
--- NOTE | 2022-09-11 08:58 | PHA.PROG ---
Admission Date/Time: September 11, 2022 08:40 Indication: skin Weight in k.018 kg Adjusted body weight in Kg: [place] body weight in Kg: Obesity Dosing Indication % IBW: Serum Creatinine - Last 168 Hours 09/11/22 02:32 Creatinine 0.76 Estimated CrCl and GFR - Last 168 Hours 09/11/22 02:32 Estim Creat Clear Calc 97.7 Estimated GFR > 60 Vancomycin Loading Dose: 2000mg x 1 Current Vancomycin Dosing Regimen: 750mg Q12H Vancomycin Monitoring using AUC goal of 400 - 600 range with trough as surrogate marker: 408mg/L Date and Time for next Vancomycin Level to be drawn: 09/12/22 @ 1500 Pharmacist Comments on Vancomycin Plan: using obese model, will ocntinue to monitor. predicted trough of 12.1 Vancomycin dosing will take advantage of [employer] as a clinical decision support tool that uses Bayesian modeling to calculate individual patient's pharmacokinetic parameters and forecast the patient's drug concentration time course with the target goal AUC 24 range of 400 - 600 mg/L/hr.
[2022-09-11 09:02] VITALS: BP 115/50; PULSE 80; RESP 16; TEMP 36.9; O2SAT 99
--- NOTE | 2022-09-11 10:04 | PC.NURSE ---
called floor to give report and was told that the unit is in rounds currently and the nurse is unable to answer the phone and will be told to call back when available
--- NOTE | 2022-09-11 11:20 | PC.NURSE ---
this nurse went into the patients room to assist bed 15 on discharge, this patient was in her room standing at bedside with her back facing the curtain, upon this nurse educating bed 15 the patient at some point left her room and exited the facility. security found the patient in her vehicle with drugs, pt willingly came back into the facility with security for further treatment of her infection, pt denies usage of drugs while outside, security performed a search of her clothing, charge nurse aware, progressive care manager of the ed aware as well. pt has been cleared to go up to her room on S3.
[2022-09-11 11:47] VITALS: BP 116/67; PULSE 98; RESP 18; TEMP 37.1; O2SAT 99
[2022-09-11] MEDS: Morphine Sulfate 2 MG/ML CARTRIDGE IVPUSH (12:31)
--- NOTE | 2022-09-11 12:48 | PM.CNGS ---
History of Present Illness Consult details Consult date: 09/11/22 Narrative: The patient is a 37-year-old RHD woman with history of IVDA who states that she experienced a spider bite in her right medial forearm several days ago and then began to experience a cutaneous rash. She was admitted to the hospitalist service via the emergency department where needle aspiration of the abscess was performed, but no incision and drainage. The patient denies any paresthesias and on passive and active flexion and extension of her wrist and fingers, she denies pain or paresthesias. Review of Systems Review of Systems: Yes all other systems are reviewed and are negative Constitutional: Constitutional: Reports as per [facility] Past Medical History Medical History Dog bite Methadone dependence Migraines Social History Social History Household Members: Other Household Members Other:: with a friend Housing: Other Housing Other:: between housing Do you presently have visiting nurse or other home services: No Alcohol intake: current Patient Tobacco Use Status: Current everyday Tobacco user Tobacco use type: Cigarette Smoked in Last 30 Days: Yes Patient Interested in Nicotine Replacement: Yes Patient Given Instructions on How to Stop Smoking: Yes Date Education Initiated: 09/11/22 Second Hand Smoke Exposure: No Use of substances other than those prescribed or required for medical reasons: Yes Substance Use Type: Crack/Cocaine and Heroin Substance Use Frequency: Chronic Longstanding Last Used Substance: Hours (ago) Last Used Substance Other:: heroin Currently Displaying Signs/Symptoms of Drug Intoxication Withdrawal: No Any prior treatment program specific to substance use: Yes (was on methadone) Have you been hit, kicked, punched, or otherwise hurt by someone within the past year? If so, by whom?: No Do you feel safe in your current relationship?: No Current Relationship Is there a partner from a previous relationship who is making you feel unsafe now?: No Are you made to feel afraid or neglected: No Advance Directives: No Advance Directives Information Provided: Yes Advance Directives on File: No Recently lost weight without trying: No Nutrition Risks: No Nutritional Risk Patient : No : No Poor oral hygiene: No Meds Allergies Allergy/AdvReac Type Severity Reaction Status Date / Time Sulfa (Sulfonamide Allergy Unknown RASH Verified 09/11/22 01:43 Antibiotics) [SULFA (SULFONAMIDE ANTIBIOTICS)] sulfamethoxazole Allergy Unknown RASH Verified 09/11/22 01:43 [From BACTRIM] trimethoprim [From BACTRIM] Allergy Unknown RASH Verified 09/11/22 01:43 Active Medications: Current Medications Enoxaparin Sodium (Enoxaparin Sodium 40 Mg/0.4 Ml Syringe) 40 mg SUBCUT Q24H [facility] Last Admin: 09/11/22 08:51 Dose: Not Given Vancomycin HCl 750 mg/ Sodium (Chloride) 265 mls @ 265 mls/hr IV Q12H [facility] Nicotine (Nicotine 21 Mg Patch.Td24) 21 mg TRANSDERMA DAILY [facility] Pharmacy Consult (Consult Rx Perform Med Rec) 1 each MISCELLANE ONCE PRN PRN Reason: Consult order Pharmacy Consult (Consult Rx Vancomycin Dosing) 1 each MISCELLANE DAILY PRN PRN Reason: Consult order Sodium Chloride (0.9 % Sodium Chloride Flush 3 Ml Syringe) 3 ml IVFLUSH QSHIFT [facility] Home Medications Medication Instructions Recorded Confirmed Last Taken Type No Known Home Meds 09/11/22 09/11/22 Unknown History Physical Exam Vital Signs: Vital Signs: Last Vital Signs Temp 98.8 F 09/11/22 11:47 Pulse 98 09/11/22 11:47 Resp 18 09/11/22 11:47 BP 116/67 09/11/22 11:47 Pulse Ox 99 09/11/22 11:47 O2 Del Method 09/11/22 11:47 BMI result Body Mass Index 32.5 On exam, the patient is not toxic Her sclerae are anicteric Her right forearm has a needle puncture on the ulnar side of the distal wrist with fluctuance. A maculopapular rash is present and on flexion and extension both active and passive, the patient denies forearm pain. She does however note limitation to movement due to swelling. She has 3+ nonpitting edema of her right hand and forearm No veronica necrosis is present Sensation to palpation of the fingertips is intact. Results Labs 09/11/22 05:20 09/11/22 02:32 Labs: Abnormal lab results 09/11/22 09/11/22 Range/Units 02:32 05:20 RBC 4.10 L (4.20-5.50) X10*6/uL Lymph % (Auto) 43.1 H (20-40) % Random Glucose 126 H (60-115) mg/dL AST 37 H (5-31) U/L ALT 46 H (0-31) U/L Short CBC 09/11/22 Range/Units 05:20 WBC 9.5 (4.8-10.8) X10*3/uL Hgb 12.6 (12.0-16.0) g/dl Hct 37.5 (37.0-47.0) % Plt Count 260 (160-400) X10*3/uL BMP 09/11/22 02:32 Sodium 136 Potassium 4.2 Chloride 104 Carbon Dioxide 23 BUN 9 Creatinine 0.76 Calcium 9.3 Cardiac Enzymes 09/11/22 Range/Units 02:32 Total Creatine Kinase 61 (26-140) U/L Liver Function 09/11/22 Range/Units 02:32 Total Bilirubin 0.5 (0.0-1.0) mg/dL AST 37 H (5-31) U/L ALT 46 H (0-31) U/L Alkaline Phosphatase 94 (39-117) U/L Albumin 4.1 (3.5-5.0) g/dL All other labs normal. Imaging Additional studies: I reviewed the images and report of the CT scan. There is a significant amount of soft tissue edema but no gas and in the ulnar aspect of the distal forearm, an approximately 3 x 3 x 2 cm abscess is noted Assessment and Plan (1) Abscess of forearm, right: Status: Acute (2) Cellulitis of forearm, right: Status: Acute Plan I recommended incision and drainage of the abscess and given the degree of swelling, we will also order consultation with Dr. Duran, orthopedic hand, since the patient has significant edema. There is no evidence of compartment syndrome based on my exam and the patient's complaints, but her edema is significant. Cultures intra operatively were obtained Will reassess patient later this afternoon. Will remove packing tomorrow. Time Spent With Patient Time: Total time managing care of this patient today ____ minutes. Procedures Date of Service Date of Service: 09/11/22 Abscess I/D Site: upper extremity Side (if applicable): right Anesthetic used: lidocaine 1% Technique: incised with #11 blade Amount of fluid (mL): 10 Irrigation: Yes Packing used?: iodoform Additional comments: Approximately 10 cc of gross purulence was expressed with irrigation. Packing was inserted. Patient tolerated the procedure well
--- NOTE | 2022-09-11 13:29 | MHC.RECOVRN ---
This automatic typewriter inspector met w/ patient after addiction consult was placed. Patient was sitting up in bed when t/w entered room. Patient reports last use of NATTY/Opiates ROD AND TUBE STRAIGHTENER, approximately 3 bags IN/IV. Patient reports past 2 years, daily use of heroin and NATTY, patient reports one bundle daily IV/IN. Patient states prior to the past 2 years, sustained recovery for 6 years. Patient states during the 6 years of recovery was on Methadone 80mg at [facility]. Patient reports no hx of overdose. Patient states hx of one detox admission for short stay of 3 days. T/W reviewed role of Addiction RN/Team, patient states would like to start Methadone for withdrawal and then continue with Methadone maintenance, requesting referral to [facility] [address] upon d/c to f/u outpatient with Methadone. Currently patient was sleepy during conversation, reports starting to feel antcy, back pain, fidgety. Provider aware, will reassess for withdrawal at end of shift.
--- NOTE | 2022-09-11 13:59 | P.CONOP_ITS ---
History of Present Illness HPI Consult date: 09/11/22 Chief complaint: right forearm cellulitis and abscess in ivda Narrative: The patient is a 37-year-old woman who is in inpatient on the internal medicine hospitalist service. I was contacted by Dr. Reyes of general surgery earlier today. He performed an I&D of an abscess on the distal ulnar aspect of her right forearm. She is an IV drug user and reported to me that she did shoot up in that area. He was concerned about the swelling in her hand and asked to 5 might evaluate her for a possible abscess in that area. Of interest, the patient also reports that she developed multiple bite type lesions all over her body after staying over at a friend's house a couple days ago. They are very itchy. PMFSH Past Medical History Medical History Dog bite Methadone dependence Migraines Social History Social History Household Members: Other Household Members Other:: with a friend Housing: Other Housing Other:: between housing Do you presently have visiting nurse or other home services: No Alcohol intake: current Patient Tobacco Use Status: Current everyday Tobacco user Tobacco use type: Cigarette Smoked in Last 30 Days: Yes Patient Interested in Nicotine Replacement: Yes Patient Given Instructions on How to Stop Smoking: Yes Date Education Initiated: 09/11/22 Second Hand Smoke Exposure: No Use of substances other than those prescribed or required for medical reasons: Yes Substance Use Type: Crack/Cocaine and Heroin Substance Use Frequency: Chronic Longstanding Last Used Substance: Hours (ago) Last Used Substance Other:: heroin Currently Displaying Signs/Symptoms of Drug Intoxication Withdrawal: No Any prior treatment program specific to substance use: Yes (was on methadone) Have you been hit, kicked, punched, or otherwise hurt by someone within the past year? If so, by whom?: No Do you feel safe in your current relationship?: No Current Relationship Is there a partner from a previous relationship who is making you feel unsafe now?: No Are you made to feel afraid or neglected: No Advance Directives: No Advance Directives Information Provided: Yes Advance Directives on File: No Recently lost weight without trying: No Nutrition Risks: No Nutritional Risk Patient : No : No Poor oral hygiene: No Meds Allergies Allergy/AdvReac Type Severity Reaction Status Date / Time Sulfa (Sulfonamide Allergy Unknown RASH Verified 09/11/22 01:43 Antibiotics) [SULFA (SULFONAMIDE ANTIBIOTICS)] sulfamethoxazole Allergy Unknown RASH Verified 09/11/22 01:43 [From BACTRIM] trimethoprim [From BACTRIM] Allergy Unknown RASH Verified 09/11/22 01:43 Active Medications: Current Medications Enoxaparin Sodium (Enoxaparin Sodium 40 Mg/0.4 Ml Syringe) 40 mg SUBCUT Q24H [facility] Last Admin: 09/11/22 08:51 Dose: Not Given Vancomycin HCl 750 mg/ Sodium (Chloride) 265 mls @ 265 mls/hr IV Q12H [facility] Nicotine (Nicotine 21 Mg Patch.Td24) 21 mg TRANSDERMA DAILY [facility] Pharmacy Consult (Consult Rx Perform Med Rec) 1 each MISCELLANE ONCE PRN PRN Reason: Consult order Pharmacy Consult (Consult Rx Vancomycin Dosing) 1 each MISCELLANE DAILY PRN PRN Reason: Consult order Sodium Chloride (0.9 % Sodium Chloride Flush 3 Ml Syringe) 3 ml IVFLUSH QSHIFT [facility] Home Medications Medication Instructions Recorded Confirmed Last Taken Type No Known Home Meds 09/11/22 09/11/22 Unknown History Physical Exam Vital Signs: Vital Signs: Last Vital Signs Temp 98.8 F 09/11/22 11:47 Pulse 98 09/11/22 11:47 Resp 18 09/11/22 11:47 BP 116/67 09/11/22 11:47 Pulse Ox 99 09/11/22 11:47 O2 Del Method 09/11/22 11:47 BMI result Body Mass Index 32.5 Const: General: cooperative, healthy appearing and no acute distress Orientation/consciousness: oriented to person and oriented to place HEENT: Head: Yes normocephalic and Yes atraumatic Eyes: EOM: EOMs intact bilaterally Resp: Effort & Inspection: normal respiratory effort and able to speak in complete sentences Cardio: Jugular venous distension: no JVD Skin: General skin exam: turgor normal Rashes: no rashes Neuro: General: oriented to person and oriented to place Extrem: Other: Evaluation of right Upper Extremity: Neuro: Median, ulnar, radial nerves motor and sensory grossly intact with n ormal sensation to the tips of all digits. . Vascular: Cap refill brisk. ROM: Can bring fingers closed to a fist and back out to full extension without discomfort.. Can oppose thumb to all fingertips She does have a moderate amount of swelling in the right hand but the hand is soft with no palpable masses. Her hand is also completely nontender to palpation. Skin: She has multiple bite type lesions over not just the right hand but the entire right upper extremity also the left upper extremity, her body and into the lower extremities. Some of them appear to be in a line as in from an insect biting multiple times. It is possible that this could be from bedbugs or fleas or other possible insect. The ones on her hand are more papular where as the ones on her leg are flatter, with an erythematous area measuring perhaps 8-10 mm in diameter each. She certainly has easily over 100 of these kinds of bites, possibly well over that many. They are pruritic. No drainage that I can see. CT of right forearm/hand: FINDINGS: No acute fracture or dislocation. No joint space narrowing or marginal osteophytes. No concerning lytic or blastic osseous lesion. No periosteal reaction or cortical erosion to suggest osteomyelitis. In the region of the basilic vein at the level of the distal ulnar diaphysis, there is a peripherally enhancing fluid collection measuring approximately 1.6 x 1.2 x 2.9 cm (AP x mL x cc). Findings are consistent with abscess formation. No associated soft tissue air/emphysema. There is adjacent subcutaneous stranding with mild circumferential subcutaneous edema. No enhancing soft tissue mass. Otherwise, the visualized vasculature appears unremarkable. The visualized muscles and tendons are grossly intact. CT/CT forearm RT w IV con IMPRESSION: Peripherally enhancing fluid collection in the region of the basilic vein at the level of the distal ulnar diaphysis measuring up to 2.9 cm in greatest dimension. Findings are consistent with abscess formation. No associated soft tissue air/emphysema. ? No acute osseous abnormality. No periosteal reaction or cortical erosion to suggest osteomyelitis. Dictated By: Rustam Mckenna MD 09/11/22? Psych: Appearance: grossly normal Affect: normal affect Attitude: cooperative Results Labs 09/11/22 05:20 09/11/22 02:32 Labs: Abnormal lab results 09/11/22 09/11/22 Range/Units 02:32 05:20 RBC 4.10 L (4.20-5.50) X10*6/uL Lymph % (Auto) 43.1 H (20-40) % Random Glucose 126 H (60-115) mg/dL AST 37 H (5-31) U/L ALT 46 H (0-31) U/L H & H 09/11/22 Range/Units 05:20 Hgb 12.6 (12.0-16.0) g/dl Hct 37.5 (37.0-47.0) % All other labs normal. Assessment and Plan (1) Abscess of forearm, right: Status: Acute (2) Cellulitis of forearm, right: Status: Acute (3) Bug bites: Status: Acute (4) Swelling of right hand: Status: Acute Plan Assessment and plan: 1. Right distal forearm abscess Secondary to IV drug use. Patient admits recent IV drug use in this area. Status post I and D at the bedside by Dr. Reyes This will be followed by the general surgery team. 2. Right hand swelling 3. Multiple bite wounds involving the entire body including the right hand I educated her about these conditions. I also talked with her internal medicine hospitalist, Dr. Arteaga I believe the hand swelling is likely secondary to the abscess in her distal forearm, and also possibly due to some of the bug bites. The hand is soft, nontender and she has full active motion of all digits. I am happy to say that there are no operative indications at this time for her right hand. I encouraged her to work on active range of motion of the digits as this should also facilitate a decrease in her hand swelling as her forearm infection improves. I also asked the nurse to place a pillow under the right upper extremity to facilitate elevation of the extremity. I am sure that IV antibiotics will be continued for her abscess. This will hopefully also act to prevent possible infection at the sites of her many bug bites. Time Spent With Patient Time: Total time managing care of this patient today ____ minutes. Procedures Date of Service Date of Service: 09/11/22
[2022-09-11] MEDS: Nicotine 21 MG PATCH.TD24 TRANSDERMA (14:37)
[2022-09-11 15:41] VITALS: BP 104/56; PULSE 68; RESP 17; TEMP 36.9; O2SAT 97
--- NOTE | 2022-09-11 15:56 | MHC.RECOVRN ---
This residential mortgage underwriter checked on patient to reassess for withdrawal, upon entering room, patient sleeping in bed. Patient woke to verbal command, reports sleeping since we last spoke. Patient resting comfortably at this time. Provider aware.
[2022-09-11] MEDS: vancomycin HCL 750 MG in 0.9 % Sodium Chloride 250 ML 265 MG IV (17:12)
[2022-09-11] MEDS: 0.9 % Sodium Chloride Flush 3 ML SYRINGE IVFLUSH ×2 (17:13→19:49)
--- NOTE | 2022-09-11 18:08 | PC.NURSE ---
Pt is alert and oriented x4 but is very drowsy. Pt started on Vanco 750mg for RFA cellulitis. Pt C/O 4/10 pain to the right hand.
[2022-09-11 19:52] VITALS: BP 119/59; PULSE 85; RESP 18; TEMP 36.8; O2SAT 97
[2022-09-12 03:31] VITALS: BP 118/61; PULSE 79; RESP 18; TEMP 36.7; O2SAT 99
[2022-09-12] MEDS: diphenhydrAMINE HCL 50 MG/ML VIAL 25 MG IVPUSH ×3 (03:40→21:14)
[2022-09-12] MEDS: vancomycin HCL 750 MG in 0.9 % Sodium Chloride 250 ML 265 MG IV (03:44)
--- NOTE | 2022-09-12 04:29 | MHC.PIE ---
late entry 09/11 2099 p; pt c/o itchiness asking for iv benadryl. note pt given iv benadryl with good effect x2 as state dose. note; pt noted with rash/hives throughout body in ed i; dr gonzalez notified; new order benadryl 25 mg iv q4 e; pt asleep comfortably, will cont to monitor
[2022-09-12] MEDS: Acetaminophen 325 MG TABLET 650 MG PO ×2 (04:46→21:14)
--- NOTE | 2022-09-12 04:48 | MHC.PIE ---
p; pt c/o pain 8/10 back and rt arm asking for tylenol. note; pt also asking for methadone for withdrawal for morning i; dr gonzalez notified; new order tylenol 650 mg po prn e; will cont to monitor
[2022-09-12 06:50] LABS: Hematocrit 37.2 % (37.0-47.0); Hemoglobin 12.5 g/dl (12.0-16.0); Mean Corpuscular HGB Conc 33.6 g/dl (31.0-35.0); Mean Corpuscular Hemoglobin 30.1 pg (27.0-33.0); Mean Corpuscular Volume 89.6 fL (80.0-98.0); Mean Platelet Volume 9.4 fL (9.4-12.3); Platelet Count 258 X10*3/uL (160-400); Red Blood Count 4.15 X10*6/uL (4.20-5.50); Red Cell Distribution Width 13.7 % (11.0-16.0); White Blood Count 8.4 X10*3/uL (4.8-10.8)
[2022-09-12 06:58] LABS: Anion Gap 9 (12-20); Blood Urea Nitrogen 4 mg/dL (9-16); Calcium 8.4 mg/dL (8.4-10.2); Carbon Dioxide 24 mmol/L (22-29); Chloride 108 mmol/L (96-108); Creatinine Clr Calc Pharmacy 112.5; Estimated Glomerular Filt Rate > 60; Glucose Fasting 109 mg/dL (60-99); Potassium 4.1 mmol/L (3.3-5.1); Sodium 137 mmol/L (135-145)
[2022-09-12 07:42] VITALS: BP 113/68; PULSE 78; RESP 18; TEMP 37.6; O2SAT 99
[2022-09-12 08:14] LABS: HBS Num1 > 1000.00 mIU/mL (0-7.99); HBc Num1 0.08 S/CO (0.00-0.79); HBsAGNum1 0.32 S/CO (0.00-0.99); HIV AB/AG Nonreactive (Nonreactive); HIV Num 1 0.08 S/CO (0.00-0.99); Hepatitis B Core Antibody Nonreactive (Nonreactive); Hepatitis B Surface Antigen Negative (Negative); ~HepC Num1 15.47 S/CO (0.00-0.79); ~Hepatitis B Surface Antibody REACTIVE (Nonreactive); ~Hepatitis C Antibody Reactive (Nonreactive)
[2022-09-12] MEDS: 0.9 % Sodium Chloride Flush 3 ML SYRINGE IVFLUSH ×3 (08:45→19:39)
[2022-09-12] MEDS: Enoxaparin Sodium 40 MG/0.4 ML SYRINGE SUBCUT (08:45)
[2022-09-12] MEDS: Nicotine 21 MG PATCH.TD24 TRANSDERMA (08:45)
--- NOTE | 2022-09-12 08:59 | HO.PM.IMPN ---
Subjective Subjective Date of Service: 09/12/22 Interval History: right arm pain, rash Physical Exam Vital Signs: Vital Signs: Last Vital Signs Temp 99.7 F 09/12/22 07:42 Pulse 78 09/12/22 07:42 Resp 18 09/12/22 07:42 BP 113/68 09/12/22 07:42 Pulse Ox 99 09/12/22 07:42 O2 Del Method 09/12/22 07:42 BMI result Body Mass Index 32.5 Const: General: cooperative, healthy appearing and no acute distress Orientation/consciousness: oriented to person and oriented to place HEENT: Head: Yes normocephalic and Yes atraumatic Eyes: EOM: EOMs intact bilaterally Resp: Effort & Inspection: normal respiratory effort and able to speak in complete sentences Cardio: Jugular venous distension: no JVD Skin: General skin exam: turgor normal Rashes: no rashes Neuro: General: oriented to person and oriented to place Extrem: Other: Evaluation of right Upper Extremity: Neuro: Median, ulnar, radial nerves motor and sensory grossly intact with normal sensation to the tips of all digits. . Vascular: Cap refill brisk. ROM: Can bring fingers closed to a fist and back out to full extension without discomfort.. Can oppose thumb to all fingertips She does have a moderate amount of swelling in the right hand but the hand is soft with no palpable masses. Her hand is also completely nontender to palpation. Skin: She has multiple bite type lesions over not just the right hand but the entire right upper extremity also the left upper extremity, her body and into the lower extremities. Some of them appear to be in a line as in from an insect biting multiple times. It is possible that this could be from bedbugs or fleas or other possible insect. The ones on her hand are more papular where as the ones on her leg are flatter, with an erythematous area measuring perhaps 8-10 mm in diameter each. She certainly has easily over 100 of these kinds of bites, possibly well over that many. They are pruritic. No drainage that I can see. CT of right forearm/hand: FINDINGS: No acute fracture or dislocation. No joint space narrowing or marginal osteophytes. No concerning lytic or blastic osseous lesion. No periosteal reaction or cortical erosion to suggest osteomyelitis. In the region of the basilic vein at the level of the distal ulnar diaphysis, there is a peripherally enhancing fluid collection measuring approximately 1.6 x 1.2 x 2.9 cm (AP x mL x cc). Findings are consistent with abscess formation. No associated soft tissue air/emphysema. There is adjacent subcutaneous stranding with mild circumferential subcutaneous edema. No enhancing soft tissue mass. Otherwise, the visualized vasculature appears unremarkable. The visualized muscles and tendons are grossly intact. CT/CT forearm RT w IV con IMPRESSION: Peripherally enhancing fluid collection in the region of the basilic vein at the level of the distal ulnar diaphysis measuring up to 2.9 cm in greatest dimension. Findings are consistent with abscess formation. No associated soft tissue air/emphysema. ? No acute osseous abnormality. No periosteal reaction or cortical erosion to suggest osteomyelitis. Dictated By: Rustam Mckenna MD 09/11/22? Psych: Appearance: grossly normal Affect: normal affect Attitude: cooperative Objective Data Active Medications Acetaminophen (Acetaminophen 325 Mg Tablet) 650 mg PO Q6H PRN PRN Reason: Pain, Moderate (Pain Scale 4-6 Last Admin: 09/12/22 04:46 Dose: 650 mg Documented By: SANDY Diphenhydramine HCl (Diphenhydramine Hcl 50 Mg/Ml Vial) 25 mg IVPUSH Q4H PRN PRN Reason: itching Last Admin: 09/12/22 03:40 Dose: 25 mg Documented By: SANDY Enoxaparin Sodium (Enoxaparin Sodium 40 Mg/0.4 Ml Syringe) 40 mg SUBCUT Q24H [facility] Last Admin: 09/12/22 08:45 Dose: 40 mg Documented By: TIO Vancomycin HCl 750 mg/ Sodium (Chloride) 265 mls @ 265 mls/hr IV Q12H [facility] Last Infusion: 09/12/22 04:51 Dose: 0 mls/hr Documented By: SANDY Nicotine (Nicotine 21 Mg Patch.Td24) 21 mg TRANSDERMA DAILY [facility] Last Admin: 09/12/22 08:45 Dose: 21 mg Documented By: TIO Pharmacy Consult (Consult Rx Perform Med Rec) 1 each MISCELLANE ONCE PRN PRN Reason: Consult order Pharmacy Consult (Consult Rx Vancomycin Dosing) 1 each MISCELLANE DAILY PRN PRN Reason: Consult order Sodium Chloride (0.9 % Sodium Chloride Flush 3 Ml Syringe) 3 ml IVFLUSH QSHIFT [facility] Last Admin: 09/12/22 08:45 Dose: 3 ml Documented By: TIO Labs 09/12/22 05:40 09/12/22 05:40 Labs: Laboratory Results - last 24 hr 09/12/22 09/12/22 09/12/22 05:40 05:40 05:40 MCV 89.6 MCH 30.1 MCHC 33.6 RDW 13.7 Plt Count 258 MPV 9.4 Absolute Nucleated RBC 0.000 Nucleated RBC % (auto) 0.0 Anion Gap 9 L Estim Creat Clear Calc 112.5 Estimated GFR > 60 Fasting Glucose 109 H Calcium 8.4 D Hep Bs Antigen Negative Hep Bs Antibody REACTIVE Hep B Core Total Ab Nonreactive Hepatitis C Ab (EIA) Reactive H HIV 1&2 Ab/P24 Ag 4thGn Nonreactive Microbiology Microbiology Results: Microbiology 09/11/22 03:59 Blood Culture - Preliminary Blood - Venous No growth after 24 hours. 09/11/22 03:59 Blood Culture - Preliminary Blood - Venous No growth after 24 hours. 09/11/22 13:02 Gram Stain - Final Arm Right 09/11/22 03:59 Gram Stain - Final Arm Right Assessment and Plan (1) Hepatitis C: Status: Acute Plan 37F polysubtance dependence presented with right forearm pain and swelling right forearm abscess and cellulitis due to IVDA continue vanc, follow up wound cultures s/p i and d polysubtances dependence with opiate withdrawal addiction medicine following started on methadone HCV appears to be new diagnosis, outpatient follow up diffuse pruritic rash ?hcv related urticaria continue bendaryl, topical steroids obesity weight loss recommended dvt prophylaxis - lovenox full code reason for continued hospitalization:awaiting cultures Time Spent With Patient Time: Total time managing care of this patient today ____ minutes. Quality Stroke Does the patient have a stroke diagnosis?: No VTE Prior VTE?: No VTE Risk Level:: Medical - moderate - high VTE Device Contraindication: Treatment Not Indicated VTE Drug Contraindication: N/A - Med Ordered
[2022-09-12] MEDS: methADONE HCl 20 MG/2 ML ORAL.CONC 30 MG PO (09:34)
--- NOTE | 2022-09-12 11:11 | MHC.RECOVRN ---
Addendum entered by Divine Ham 09/12/22 11:35: Pts referral sent to [facility]. Original Note: Met with pt in 354 to follow up regarding methadone titration. Pt laying in bed, awake, alert, easily engages in conversation. Pt received methadone shortly before t/w met with pt. Pt would like referral to [facility] to continue methadone after dc. Pt denies questions or concerns regarding methadone.
--- NOTE | 2022-09-12 11:22 | PM.PNGS ---
Subjective Subjective Date of Service: 09/12/22 Patient reports: feels better Interval history: The patient reports that her right arm is feeling better and she continues to deny worsening of symptoms, paresthesias or pain with active or passive wrist or finger movement. She otherwise denies change since she was seen yesterday afternoon. Physical Exam Vital Signs: Vital Signs: Last Vital Signs Temp 99.7 F 09/12/22 07:42 Pulse 78 09/12/22 07:42 Resp 18 09/12/22 07:42 BP 113/68 09/12/22 07:42 Pulse Ox 99 09/12/22 07:42 O2 Del Method 09/12/22 07:42 BMI result Body Mass Index 32.5 On exam, she is communicative nontoxic Her right hand and forearm appear less swollen and the packing was removed without incident. Objective Data Active Medications Acetaminophen (Acetaminophen 325 Mg Tablet) 650 mg PO Q6H PRN PRN Reason: Pain, Moderate (Pain Scale 4-6 Last Admin: 09/12/22 04:46 Dose: 650 mg Documented By: SANDY Diphenhydramine HCl (Diphenhydramine Hcl 50 Mg/Ml Vial) 25 mg IVPUSH Q4H PRN PRN Reason: itching Last Admin: 09/12/22 09:00 Dose: 25 mg Documented By: TIO Enoxaparin Sodium (Enoxaparin Sodium 40 Mg/0.4 Ml Syringe) 40 mg SUBCUT Q24H [facility] Last Admin: 09/12/22 08:45 Dose: 40 mg Documented By: TIO Hydrocortisone (Hydrocortisone 1 % Cream 28.35 Gm Tube) 1 appl TOPICAL BID [facility]; Protocol Vancomycin HCl 750 mg/ Sodium (Chloride) 265 mls @ 265 mls/hr IV Q12H [facility] Last Infusion: 09/12/22 04:51 Dose: 0 mls/hr Documented By: SANDY Methadone HCl (Methadone Hcl 20 Mg/2 Ml Oral.Conc) 30 mg PO DAILY [facility] Last Admin: 09/12/22 09:34 Dose: 30 mg Documented By: TIO Nicotine (Nicotine 21 Mg Patch.Td24) 21 mg TRANSDERMA DAILY [facility] Last Admin: 09/12/22 08:45 Dose: 21 mg Documented By: TIO Pharmacy Consult (Consult Rx Perform Med Rec) 1 each MISCELLANE ONCE PRN PRN Reason: Consult order Pharmacy Consult (Consult Rx Vancomycin Dosing) 1 each MISCELLANE DAILY PRN PRN Reason: Consult order Sodium Chloride (0.9 % Sodium Chloride Flush 3 Ml Syringe) 3 ml IVFLUSH QSHIFT [facility] Last Admin: 09/12/22 08:45 Dose: 3 ml Documented By: TIO Labs 09/12/22 05:40 09/12/22 05:40 Labs: Laboratory Results - last 24 hr 09/12/22 09/12/22 09/12/22 05:40 05:40 05:40 MCV 89.6 MCH 30.1 MCHC 33.6 RDW 13.7 Plt Count 258 MPV 9.4 Absolute Nucleated RBC 0.000 Nucleated RBC % (auto) 0.0 Anion Gap 9 L Estim Creat Clear Calc 112.5 Estimated GFR > 60 Fasting Glucose 109 H Calcium 8.4 D Hep Bs Antigen Negative Hep Bs Antibody REACTIVE Hep B Core Total Ab Nonreactive Hepatitis C Ab (EIA) Reactive H HIV 1&2 Ab/P24 Ag 4thGn Nonreactive Microbiology Microbiology Results: Microbiology 09/11/22 03:59 Gram Stain - Final Arm Right Routine Culture - Preliminary Staphylococcus aureus 09/11/22 13:02 Gram Stain - Final Arm Right Routine Culture - Preliminary Staphylococcus aureus 09/11/22 03:59 Blood Culture - Preliminary Blood - Venous No growth after 24 hours. 09/11/22 03:59 Blood Culture - Preliminary Blood - Venous No growth after 24 hours. Procedures Date of Service Date of Service: 09/12/22 Progress Note: A&P Assessment and plan (1) Abscess of forearm, right: Status: Acute (2) Cellulitis of forearm, right: Status: Acute Plan Interval improvement noted. Patient should wash the area with soapy water at least twice a day and nursing can help with irrigating with sterile saline. Change dressing as needed. Await cultures and sensitivities. Time Spent With Patient Time: Total time managing care of this patient today ____ minutes. Quality Stroke Does the patient have a stroke diagnosis?: No VTE Prior VTE?: No VTE Risk Level:: Medical - moderate - high VTE Device Contraindication: Treatment Not Indicated VTE Drug Contraindication: N/A - Med Ordered
[2022-09-12] MEDS: Hydrocortisone 1 % Cream 28.35 GM TUBE 1 APPL TOPICAL ×2 (11:31→21:13)
--- NOTE | 2022-09-12 12:14 | MHC.CM.PN ---
EMR REVIEWED, CM MET W/PT WHO REPORTS SHE LIVES ALONE, IS FULLY INDEPENDENT W/CARE, DENIES USE OF DME AND SERVICES, PT DOES REPORT SHE WOULD LIKE TO START ON METHADONE AND HAS MET W/[employer] SUPERINTENDENT AND REFERRAL WILL BE PLACED TO [facility] ON [facility] FOR METHADONE MAINTENANCE PER PT REQUEST. PT VERIFIES ETHAN JONES IS PCP, REPORTS [facility] X2 AND HAS BEEN EDUCATED ON AND DECLINES TO COMPLETE A HCP AT THIS TIME. ANTIC D/C HOME SELF-CARE W/LAST DOSE LETTER, CM WILL CONT TO FOLLOW.
[2022-09-12 15:12] VITALS: BP 90/51; PULSE 88; RESP 18; TEMP 37.1; O2SAT 99
[2022-09-12] MEDS: cloNIDine HCL 0.1 MG TABLET PO ×2 (15:23→21:14)
--- NOTE | 2022-09-12 16:29 | HO.ADDICTPRO ---
Subjective Subjective Date of Service: 09/12/22 Reason For Visit: right forearm cellulitis and abscess in ivda Interim History: Patient currently medically admitted with cellulitis of the forearm. Seen by mathematician yesterday and unable to wake for interview. This morning, patient reporting worsening withdrawal sx and appearing diaphoretic, so RN requested follow up. Methadone 30mg ordered at that time with positive effect--although patient still reporting withdrawal sx when seen by this gag writer. Seen by this gag writer following dose administration. Patient lying on her side, knees up to her chest, eyes closed, but answering questions. She reports she is currently using btwn a bundle to 15 bags daily IV. Cocaine use as well. Denies alcohol use. Denies any history of overdose, denies any history of ATS. Reports she was previously in treatment via [facility] and methadone dose was 80mg at that time. She is requesting to continue dose titration during this admission. Requesting comfort medications for the restlessness. Review of Systems Constitutional: Reports as per HPI Mental Status Exam Mental Status Exam Patient Appearance: Appropriate (hospital attire, tired) Level of Consciousness: Awake Patient Behavior: Cooperative Affect Description: Flat Diagnostics Vital Signs (24Hr): Vital Signs - 24 hr 09/11/22 19:52 09/12/22 03:31 09/12/22 07:42 Temperature 98.3 F 98.0 F 99.7 F Pulse Rate 85 79 78 Respiratory Rate 18 18 18 Blood Pressure 119/59 L 118/61 113/68 Pulse Oximetry 97 99 99 Oxygen Delivery Method Room Air Room Air Room Air 09/12/22 15:12 Temperature 98.7 F Pulse Rate 88 Respiratory Rate 18 Blood Pressure 90/51 L Pulse Oximetry 99 Oxygen Delivery Method Room Air BMI result Body Mass Index 32.5 Labs 09/12/22 05:40 09/12/22 05:40 Labs: Laboratory Results - last 48 hr 09/11/22 09/11/22 09/11/22 02:32 03:59 05:20 WBC 9.5 RBC 4.10 L Hgb 12.6 Hct 37.5 MCV 91.5 MCH 30.7 MCHC 33.6 RDW 13.7 Plt Count 260 MPV 10.3 Immature Gran % (Auto) 0.3 Neut % (Auto) 48.1 Lymph % (Auto) 43.1 H [place] % (Auto) 6.4 Eos % (Auto) 1.8 Baso % (Auto) 0.3 Lymph # (Auto) 4.1 [place] # (Auto) 0.6 Eos # (Auto) 0.2 Baso # (Auto) 0.0 Abs Immat Gran (auto) 0.03 Absolute Neuts (auto) 4.6 Absolute Nucleated RBC 0.000 Nucleated RBC % (auto) 0.0 Sodium 136 Potassium 4.2 Chloride 104 Carbon Dioxide 23 Anion Gap 13 BUN 9 Creatinine 0.76 Estim Creat Clear Calc 97.7 Estimated GFR > 60 Random Glucose 126 H Fasting Glucose Lactic Acid 1.0 Calcium 9.3 Total Bilirubin 0.5 AST 37 H ALT 46 H Alkaline Phosphatase 94 Total Creatine Kinase 61 Total Protein 7.6 Albumin 4.1 Vancomycin Trough COVID-19 ([facility]) COVID-19 Clin Com Hep Bs Antigen Hep Bs Antibody Hep B Core Total Ab Hepatitis C Ab (EIA) HIV 1&2 Ab/P24 Ag 4thGn 09/11/22 09/12/22 09/12/22 07:36 05:40 05:40 WBC 8.4 RBC 4.15 L Hgb 12.5 Hct 37.2 MCV 89.6 MCH 30.1 MCHC 33.6 RDW 13.7 Plt Count 258 MPV 9.4 Immature Gran % (Auto) Neut % (Auto) Lymph % (Auto) [place] % (Auto) Eos % (Auto) Baso % (Auto) Lymph # (Auto) [place] # (Auto) Eos # (Auto) Baso # (Auto) Abs Immat Gran (auto) Absolute Neuts (auto) Absolute Nucleated RBC 0.000 Nucleated RBC % (auto) 0.0 Sodium 137 Potassium 4.1 Chloride 108 Carbon Dioxide 24 Anion Gap 9 L BUN 4 L Creatinine 0.66 Estim Creat Clear Calc 112.5 Estimated GFR > 60 Random Glucose Fasting Glucose 109 H Lactic Acid Calcium 8.4 D Total Bilirubin AST ALT Alkaline Phosphatase Total Creatine Kinase Total Protein Albumin Vancomycin Trough COVID-19 ([facility]) Negative COVID-19 Clin Com See Note Hep Bs Antigen Hep Bs Antibody Hep B Core Total Ab Hepatitis C Ab (EIA) HIV 1&2 Ab/P24 Ag 4thGn 09/12/22 09/12/22 05:40 15:06 WBC RBC Hgb Hct MCV MCH MCHC RDW Plt Count MPV Immature Gran % (Auto) Neut % (Auto) Lymph % (Auto) [place] % (Auto) Eos % (Auto) Baso % (Auto) Lymph # (Auto) [place] # (Auto) Eos # (Auto) Baso # (Auto) Abs Immat Gran (auto) Absolute Neuts (auto) Absolute Nucleated RBC Nucleated RBC % (auto) Sodium Potassium Chloride Carbon Dioxide Anion Gap BUN Creatinine Estim Creat Clear Calc Estimated GFR Random Glucose Fasting Glucose Lactic Acid Calcium Total Bilirubin AST ALT Alkaline Phosphatase Total Creatine Kinase Total Protein Albumin Vancomycin Trough 5.0 L COVID-19 ([facility]) COVID-19 Clin Com Hep Bs Antigen Negative Hep Bs Antibody REACTIVE Hep B Core Total Ab Nonreactive Hepatitis C Ab (EIA) Reactive H HIV 1&2 Ab/P24 Ag 4thGn Nonreactive Imaging Radiology Impressions: ITS Impressions Forearm CT 09/11/22 07:30 IMPRESSION: Peripherally enhancing fluid collection in the region of the basilic vein at the level of the distal ulnar diaphysis measuring up to 2.9 cm in greatest dimension. Findings are consistent with abscess formation. No associated soft tissue air/emphysema. No acute osseous abnormality. No periosteal reaction or cortical erosion to suggest osteomyelitis. Medications Medications Current Medications Acetaminophen (Acetaminophen 325 Mg Tablet) 650 mg PO Q6H PRN PRN Reason: Pain, Moderate (Pain Scale 4-6 Last Admin: 09/12/22 04:46 Dose: 650 mg Clonidine HCl (Clonidine Hcl 0.1 Mg Tablet) 0.1 mg PO BID [facility]; Protocol Last Admin: 09/12/22 15:23 Dose: 0.1 mg Diphenhydramine HCl (Diphenhydramine Hcl 50 Mg/Ml Vial) 25 mg IVPUSH Q4H PRN PRN Reason: itching Last Admin: 09/12/22 09:00 Dose: 25 mg Enoxaparin Sodium (Enoxaparin Sodium 40 Mg/0.4 Ml Syringe) 40 mg SUBCUT Q24H [facility] Last Admin: 09/12/22 08:45 Dose: 40 mg Hydrocortisone (Hydrocortisone 1 % Cream 28.35 Gm Tube) 1 appl TOPICAL BID [facility]; Protocol Last Admin: 09/12/22 11:31 Dose: 1 appl Vancomycin HCl 1,000 mg/ (Sodium Chloride) 270 mls @ 270 mls/hr IV Q8H [facility] Methadone HCl (Methadone Hcl 20 Mg/2 Ml Oral.Conc) 10 mg PO ONCE ONE Stop: 09/12/22 18:01 Methadone HCl (Methadone Hcl 20 Mg/2 Ml Oral.Conc) 45 mg PO DAILY [facility] Nicotine (Nicotine 21 Mg Patch.Td24) 21 mg TRANSDERMA DAILY [facility] Last Admin: 09/12/22 08:45 Dose: 21 mg Pharmacy Consult (Consult Rx Perform Med Rec) 1 each MISCELLANE ONCE PRN PRN Reason: Consult order Pharmacy Consult (Consult Rx Vancomycin Dosing) 1 each MISCELLANE DAILY PRN PRN Reason: Consult order Sodium Chloride (0.9 % Sodium Chloride Flush 3 Ml Syringe) 3 ml IVFLUSH QSHIFT [facility] Last Admin: 09/12/22 08:45 Dose: 3 ml Allergies Allergies Allergy/AdvReac Type Severity Reaction Status Date / Time Sulfa (Sulfonamide Allergy Unknown RASH Verified 09/11/22 01:43 Antibiotics) [SULFA (SULFONAMIDE ANTIBIOTICS)] sulfamethoxazole Allergy Unknown RASH Verified 09/11/22 01:43 [From BACTRIM] trimethoprim [From BACTRIM] Allergy Unknown RASH Verified 09/11/22 01:43 Assessment & Plan Assessment & Plan (1) Opioid use disorder: Status: Acute Code(s): F11.90 - Opioid use, unspecified, uncomplicated Assessment and Plan: methadone 10mg tonight at 6pm (total of 40mg) methadone 45mg in AM clonidine BID will continue to follow --mathematician has already sent referral to [facility] as requested by patient. Total time managing care of this patient today _30___ minutes.
[2022-09-12] MEDS: methADONE HCl 20 MG/2 ML ORAL.CONC 10 MG PO (17:26)
[2022-09-12] MEDS: vancomycin HCL 1,000 MG in 0.9 % Sodium Chloride 250 ML 270 MG IV (17:26)
[2022-09-12 17:53] LABS: Amphetamine Screen Urine Not Detected (Not Detect); Barbiturates, Urine Not Detected (Not Detect); Benzodiazepines Screen Urine Not Detected (Not Detect); Cannabinoid Screen Urine Not Detected (Not Detect); Cocaine Screen Urine POSITIVE (Not Detect); Fentanyl, urine POSITIVE (Not Detect); Opiate Screen Urine POSITIVE (Not Detect); Phencyclidine Screen Urine Not Detected (Not Detect)
[2022-09-12 19:04] VITALS: BP 109/55; PULSE 80; RESP 18; TEMP 37.2; O2SAT 97
[2022-09-13 00:07] VITALS: BP 107/61; PULSE 81; RESP 18; TEMP 36.4; O2SAT 96
[2022-09-13] MEDS: vancomycin HCL 1,000 MG in 0.9 % Sodium Chloride 250 ML 270 MG IV ×2 (00:52→08:36)
[2022-09-13] MEDS: diphenhydrAMINE HCL 50 MG/ML VIAL 25 MG IVPUSH (06:02)
[2022-09-13] MEDS: Acetaminophen 325 MG TABLET 650 MG PO (06:03)
[2022-09-13 06:36] LABS: Hematocrit 38.5 % (37.0-47.0); Hemoglobin 12.9 g/dl (12.0-16.0); Mean Corpuscular HGB Conc 33.5 g/dl (31.0-35.0); Mean Corpuscular Hemoglobin 29.8 pg (27.0-33.0); Mean Corpuscular Volume 88.9 fL (80.0-98.0); Mean Platelet Volume 10.8 fL (9.4-12.3); Platelet Count 196 X10*3/uL (160-400); Red Blood Count 4.33 X10*6/uL (4.20-5.50); Red Cell Distribution Width 13.5 % (11.0-16.0)
[2022-09-13 07:47] LABS: Blood Urea Nitrogen 7 mg/dL (9-16); Calcium 8.4 mg/dL (8.4-10.2); Creatinine Clr Calc Pharmacy 109.1; Estimated Glomerular Filt Rate > 60; Glucose Fasting 90 mg/dL (60-99)
[2022-09-13 07:58] LABS: Anion Gap 17 (12-20); Carbon Dioxide 17 mmol/L (22-29); Chloride 109 mmol/L (96-108); Potassium 4.2 mmol/L (3.3-5.1); Sodium 139 mmol/L (135-145)
[2022-09-13 08:13] VITALS: BP 115/55; PULSE 78; RESP 18; TEMP 36.7; O2SAT 100
[2022-09-13] MEDS: Nicotine 21 MG PATCH.TD24 TRANSDERMA (08:31)
[2022-09-13] MEDS: cloNIDine HCL 0.1 MG TABLET PO (08:32)
[2022-09-13] MEDS: 0.9 % Sodium Chloride Flush 3 ML SYRINGE IVFLUSH (08:32)
[2022-09-13] MEDS: Enoxaparin Sodium 40 MG/0.4 ML SYRINGE SUBCUT (08:32)
[2022-09-13] MEDS: methADONE HCl 20 MG/2 ML ORAL.CONC 45 MG PO (08:32)
[2022-09-13] MEDS: Hydrocortisone 1 % Cream 28.35 GM TUBE 1 APPL TOPICAL (08:37)
--- NOTE | 2022-09-13 10:06 | PM.PNGS ---
Subjective Subjective Date of Service: 09/13/22 Patient reports: feels better Interval history: Patient reports ongoing progress and denies any pain that is significant or worsening. She reports no sensory issues or deficits or muscular issues with her right hand Physical Exam Vital Signs: Vital Signs: Last Vital Signs Temp 98.1 F 09/13/22 08:13 Pulse 78 09/13/22 08:13 Resp 18 09/13/22 08:13 BP 115/55 L 09/13/22 08:13 Pulse Ox 100 09/13/22 08:13 O2 Del Method 09/13/22 08:13 BMI result Body Mass Index 32.5 Right hand and forearm swelling seems to be resolving. Dressing is clean dry and intact Objective Data Active Medications Acetaminophen (Acetaminophen 325 Mg Tablet) 650 mg PO Q6H PRN PRN Reason: Pain, Moderate (Pain Scale 4-6 Last Admin: 09/13/22 06:03 Dose: 650 mg Documented By: WALTER Clonidine HCl (Clonidine Hcl 0.1 Mg Tablet) 0.1 mg PO BID [facility]; Protocol Last Admin: 09/13/22 08:32 Dose: 0.1 mg Documented By: MATILDE Diphenhydramine HCl (Diphenhydramine Hcl 50 Mg/Ml Vial) 25 mg IVPUSH Q4H PRN PRN Reason: itching Last Admin: 09/13/22 06:02 Dose: 25 mg Documented By: WALTER Enoxaparin Sodium (Enoxaparin Sodium 40 Mg/0.4 Ml Syringe) 40 mg SUBCUT Q24H [facility] Last Admin: 09/13/22 08:32 Dose: 40 mg Documented By: MATILDE Hydrocortisone (Hydrocortisone 1 % Cream 28.35 Gm Tube) 1 appl TOPICAL BID [facility]; Protocol Last Admin: 09/13/22 08:37 Dose: 1 appl Documented By: MATILDE Vancomycin HCl 1,000 mg/ (Sodium Chloride) 270 mls @ 270 mls/hr IV Q8H [facility] Last Admin: 09/13/22 08:36 Dose: 270 mls/hr Documented By: MATILDE Methadone HCl (Methadone Hcl 20 Mg/2 Ml Oral.Conc) 45 mg PO DAILY [facility] Last Admin: 09/13/22 08:32 Dose: 45 mg Documented By: MATILDE Nicotine (Nicotine 21 Mg Patch.Td24) 21 mg TRANSDERMA DAILY [facility] Last Admin: 09/13/22 08:31 Dose: 21 mg Documented By: MATILDE Pharmacy Consult (Consult Rx Perform Med Rec) 1 each MISCELLANE ONCE PRN PRN Reason: Consult order Pharmacy Consult (Consult Rx Vancomycin Dosing) 1 each MISCELLANE DAILY PRN PRN Reason: Consult order Sodium Chloride (0.9 % Sodium Chloride Flush 3 Ml Syringe) 3 ml IVFLUSH QSHIFT [facility] Last Admin: 09/13/22 08:32 Dose: 3 ml Documented By: MATILDE Labs 09/13/22 05:43 09/13/22 05:43 Labs: Laboratory Results - last 24 hr 09/11/22 09/12/22 09/12/22 Unknown 15:06 17:00 MCV MCH MCHC RDW Plt Count MPV Absolute Nucleated RBC Nucleated RBC % (auto) Anion Gap Estim Creat Clear Calc Estimated GFR Fasting Glucose Calcium Vancomycin Trough 5.0 L Urine Opiates Screen Cancelled POSITIVE H Urine Fentanyl Screen Cancelled POSITIVE H Ur Barbiturates Screen Cancelled Not Detected Ur Phencyclidine Scrn Cancelled Not Detected Ur Amphetamines Screen Cancelled Not Detected U Benzodiazepines Scrn Cancelled Not Detected Urine Cocaine Screen Cancelled POSITIVE H U Marijuana (THC) Screen Cancelled Not Detected 09/13/22 09/13/22 05:43 05:43 MCV 88.9 MCH 29.8 MCHC 33.5 RDW 13.5 Plt Count 196 MPV 10.8 Absolute Nucleated RBC 0.000 Nucleated RBC % (auto) 0.0 Anion Gap 17 Estim Creat Clear Calc 109.1 Estimated GFR > 60 Fasting Glucose 90 Calcium 8.4 Vancomycin Trough Urine Opiates Screen Urine Fentanyl Screen Ur Barbiturates Screen Ur Phencyclidine Scrn Ur Amphetamines Screen U Benzodiazepines Scrn Urine Cocaine Screen U Marijuana (THC) Screen Microbiology Microbiology Results: Microbiology 09/11/22 13:02 Gram Stain - Final Arm Right Routine Culture - Final Methicillin Res Staph Aureus 09/11/22 03:59 Gram Stain - Final Arm Right Routine Culture - Final Methicillin Res Staph Aureus 09/11/22 03:59 Blood Culture - Preliminary Blood - Venous No growth after 48 hours. 09/11/22 03:59 Blood Culture - Preliminary Blood - Venous No growth after 48 hours. Procedures Date of Service Date of Service: 09/13/22 Progress Note: A&P Assessment and plan (1) Abscess of forearm, right: Status: Acute (2) Cellulitis of forearm, right: Status: Acute Plan Continue b.i.d. washing of the abscess and dressing changes as needed. Please call general surgery if new questions arise. Time Spent With Patient Time: Total time managing care of this patient today ____ minutes. Quality Stroke Does the patient have a stroke diagnosis?: No VTE Prior VTE?: No VTE Risk Level:: Medical - moderate - high VTE Device Contraindication: Treatment Not Indicated VTE Drug Contraindication: N/A - Med Ordered
--- NOTE | 2022-09-13 11:57 | PM.DS ---
DS: Providers Provider Date of Service: 09/13/22 Date of admission: 09/11/22 08:40 Primary care physician: Mechelle Patel MD Consults: 09/11/22 08:39 Addiction Medicine Routine Consulting Provider: Addiction Covering Reason for consultation: polysubstance use 09/11/22 09:53 Consult to General Surgery Routine Consulting Provider: Subhash Reyes Reason for consultation: ivda right forearm fluid collection ?further drainage needed 09/11/22 13:02 Consult to Orthopedics Routine Consulting Provider: Latoya Duran Reason for consultation: RIGHT arm abscess Has provider been notified: Yes DS: Diagnosis Discharge Diagnosis (1) Abscess of forearm, right: Status: Acute (2) Cellulitis of forearm, right: Status: Acute (3) Opioid use disorder: Status: Acute (4) Hepatitis C: Status: Acute DS: Summary Hospital Course Hospital Course: Admission note HPI 37F PMH opiate and cocaine dependence, uses IV, presented with 2 days right forearm swelling, pain, tenderness, ertyhema. pateint reports injecting into that arm. denies fever, chills. in ED I and D revealed pus, CT arm pending, not septic. Hospital course The patient was admitted for treatment of right forearm abscess and cellulitis related to IV drug abuse. Started on IV vancomycin as she was evaluated by surgical team with drainage done to the wound. Blood cultures remain negative while wound culture grew MRSA. Patient to be discharged on doxycycline to finish total of 10 days of antibiotic and follow-up as outpatient with PCP and surgeon. The patient went through opiate withdrawal with history of polysubstance abuse. Evaluated by Addiction team was started her on methadone. To be followed as outpatient in the methadone clinic. Newly diagnosed with hepatitis C infection. To be followed as outpatient with PCP to start treatment plan. wash and change dressing twice daily Continue doxycycline 100 mg twice daily for 1 more week Start methadone as prescribed You will need to follow-up with PCP regarding new hepatitis C diagnosis to start treatment To follow-up with PCP or Dr. Reyes outpatient to check on the wound Time Spent with Patient Time attestation: Total time managing care of this patient today ____ minutes. Discharge coordination time: Greater than 30 minutes Quality: Safe Use of Opioids Does Pt have an Active Cancer Diagnosis on the Problem List?: No Quality: Stroke Does the patient have a stroke diagnosis?: No Physical Exam Vital Signs: Vital Signs: Last Vital Signs Temp 98.1 F 09/13/22 08:13 Pulse 78 09/13/22 08:13 Resp 18 09/13/22 08:13 BP 115/55 L 09/13/22 08:13 Pulse Ox 100 09/13/22 08:13 O2 Del Method 09/13/22 08:13 BMI result Body Mass Index 32.5 Const: Other: Constitutional : Awake, interactive, not in distress Neck : Normal inspection, Supple Cardiovascular : RRR, no JVP, no lower extremity edema Respiratory : good bilateral air entry, no crackles, wheezes or rhonchi Gastrointestinal: soft, lax, Normal bowel sounds, Non tender Skin : Warm, Dry, RUE swelling, erythema and drainage decreased significantly with no tenderness noted. Neurological : Alert & oriented x3, No focal deficit , CN 2-12 within normal DS: Data Data Completed and Pending Labs on day of discharge: Laboratory Results - last 24 hr 09/11/22 09/12/22 09/12/22 Unknown 15:06 17:00 WBC RBC Hgb Hct MCV MCH MCHC RDW Plt Count MPV Absolute Nucleated RBC Nucleated RBC % (auto) Sodium Potassium Chloride Carbon Dioxide Anion Gap BUN Creatinine Estim Creat Clear Calc Estimated GFR Fasting Glucose Calcium Vancomycin Trough 5.0 L Urine Opiates Screen Cancelled POSITIVE H Urine Fentanyl Screen Cancelled POSITIVE H Ur Barbiturates Screen Cancelled Not Detected Ur Phencyclidine Scrn Cancelled Not Detected Ur Amphetamines Screen Cancelled Not Detected U Benzodiazepines Scrn Cancelled Not Detected Urine Cocaine Screen Cancelled POSITIVE H U Marijuana (THC) Screen Cancelled Not Detected 09/13/22 09/13/22 05:43 05:43 WBC 9.0 RBC 4.33 Hgb 12.9 Hct 38.5 MCV 88.9 MCH 29.8 MCHC 33.5 RDW 13.5 Plt Count 196 MPV 10.8 Absolute Nucleated RBC 0.000 Nucleated RBC % (auto) 0.0 Sodium 139 Potassium 4.2 Chloride 109 H Carbon Dioxide 17 L Anion Gap 17 BUN 7 L Creatinine 0.68 Estim Creat Clear Calc 109.1 Estimated GFR > 60 Fasting Glucose 90 Calcium 8.4 Vancomycin Trough Urine Opiates Screen Urine Fentanyl Screen Ur Barbiturates Screen Ur Phencyclidine Scrn Ur Amphetamines Screen U Benzodiazepines Scrn Urine Cocaine Screen U Marijuana (THC) Screen Preliminary micro results at discharge 02/21/23 03:59 Blood Culture - Preliminary Blood - Venous No growth after 48 hours. 09/11/22 03:59 Blood Culture - Preliminary Blood - Venous No growth after 48 hours. Imaging X-ray: Radiologist's impression: ITS Impressions Forearm CT 09/11/22 07:30 IMPRESSION: Peripherally enhancing fluid collection in the region of the basilic vein at the level of the distal ulnar diaphysis measuring up to 2.9 cm in greatest dimension. Findings are consistent with abscess formation. No associated soft tissue air/emphysema. No acute osseous abnormality. No periosteal reaction or cortical erosion to suggest osteomyelitis. Discharge Plan Discharge Anticipated Discharge Date/Time: 09/13/22 11:12 Patient Disposition: Home, Self-Care Discharge Diagnosis: Right forearm abscess Referrals: Mechelle Ptael MD [Primary Care Provider] - 1 Week Discharge Medications: New nicotine 21 mg/24 hr Patch 24 Hour 21 mg transdermal DAILY Qty: 30 0RF doxycycline monohydrate 100 mg capsule 100 mg PO BID Qty: 14 0RF Discharge Orders: Discharge Order (Routine); Ordered 09/13/22 Ordered By: Jese Barcenas Diet: Advance to usual diet Activity on Discharge: As tolerated Stand Alone Forms: Patient Portal Discharge page Care Plan Goals: Read below Health Concerns: Read below Plan of Treatment: Read below Assessment: You were admitted to the hospital for evaluation of right forearm abscess. Treated with drainage and antibiotics with good response. Grew bacteria called MRSA. You will need to finish 1 more week of oral antibiotic. wash and change dressing twice daily Continue doxycycline 100 mg twice daily for 1 more week Start methadone as prescribed and follow as scheduled You will need to follow-up with PCP regarding new hepatitis C diagnosis to start treatment To follow-up with PCP or Dr. Reyes outpatient to check on the wound
--- NOTE | 2022-09-13 12:30 | HO.ADDICTPRO ---
Subjective Subjective Date of Service: 09/13/22 Reason For Visit: right forearm cellulitis and abscess in ivda Interim History: Patient seen in follow up Received methadone 45mg this morning. Appeared comfortable, denies withdrawal sx Scheduled for discharge today. Referral already in place for [facility]. Risk reduction discussion--patient declined fentanyl test strips Review of Systems Constitutional: Reports as per HPI and Reports no additional constitutional complaints Mental Status Exam Mental Status Exam Patient Appearance: Well Grooomed and Appropriate Level of Consciousness: Awake, Appropriate and Alert Mood Description: Calm Affect Description: Calm Judgement: Fair Diagnostics Vital Signs (24Hr): Vital Signs - 24 hr 09/12/22 15:12 09/12/22 19:04 09/13/22 00:07 Temperature 98.7 F 98.9 F 97.5 F Pulse Rate 88 80 81 Respiratory Rate 18 18 18 Blood Pressure 90/51 L 109/55 L 107/61 Pulse Oximetry 99 97 96 Oxygen Delivery Method Room Air Room Air Room Air 09/13/22 08:13 Temperature 98.1 F Pulse Rate 78 Respiratory Rate 18 Blood Pressure 115/55 L Pulse Oximetry 100 Oxygen Delivery Method Room Air BMI result Body Mass Index 32.5 Labs 09/13/22 05:43 09/13/22 05:43 Labs: Laboratory Results - last 48 hr 09/11/22 09/12/22 09/12/22 Unknown 05:40 05:40 WBC 8.4 RBC 4.15 L Hgb 12.5 Hct 37.2 MCV 89.6 MCH 30.1 MCHC 33.6 RDW 13.7 Plt Count 258 MPV 9.4 Absolute Nucleated RBC 0.000 Nucleated RBC % (auto) 0.0 Sodium 137 Potassium 4.1 Chloride 108 Carbon Dioxide 24 Anion Gap 9 L BUN 4 L Creatinine 0.66 Estim Creat Clear Calc 112.5 Estimated GFR > 60 Fasting Glucose 109 H Calcium 8.4 D Vancomycin Trough Urine Opiates Screen Cancelled Urine Fentanyl Screen Cancelled Ur Barbiturates Screen Cancelled Ur Phencyclidine Scrn Cancelled Ur Amphetamines Screen Cancelled U Benzodiazepines Scrn Cancelled Urine Cocaine Screen Cancelled U Marijuana (THC) Screen Cancelled Hep Bs Antigen Hep Bs Antibody Hep B Core Total Ab Hepatitis C Ab (EIA) HIV 1&2 Ab/P24 Ag 4thGn 09/12/22 09/12/22 09/12/22 05:40 15:06 17:00 WBC RBC Hgb Hct MCV MCH MCHC RDW Plt Count MPV Absolute Nucleated RBC Nucleated RBC % (auto) Sodium Potassium Chloride Carbon Dioxide Anion Gap BUN Creatinine Estim Creat Clear Calc Estimated GFR Fasting Glucose Calcium Vancomycin Trough 5.0 L Urine Opiates Screen POSITIVE H Urine Fentanyl Screen POSITIVE H Ur Barbiturates Screen Not Detected Ur Phencyclidine Scrn Not Detected Ur Amphetamines Screen Not Detected U Benzodiazepines Scrn Not Detected Urine Cocaine Screen POSITIVE H U Marijuana (THC) Screen Not Detected Hep Bs Antigen Negative Hep Bs Antibody REACTIVE Hep B Core Total Ab Nonreactive Hepatitis C Ab (EIA) Reactive H HIV 1&2 Ab/P24 Ag 4thGn Nonreactive 09/13/22 09/13/22 05:43 05:43 WBC 9.0 RBC 4.33 Hgb 12.9 Hct 38.5 MCV 88.9 MCH 29.8 MCHC 33.5 RDW 13.5 Plt Count 196 MPV 10.8 Absolute Nucleated RBC 0.000 Nucleated RBC % (auto) 0.0 Sodium 139 Potassium 4.2 Chloride 109 H Carbon Dioxide 17 L Anion Gap 17 BUN 7 L Creatinine 0.68 Estim Creat Clear Calc 109.1 Estimated GFR > 60 Fasting Glucose 90 Calcium 8.4 Vancomycin Trough Urine Opiates Screen Urine Fentanyl Screen Ur Barbiturates Screen Ur Phencyclidine Scrn Ur Amphetamines Screen U Benzodiazepines Scrn Urine Cocaine Screen U Marijuana (THC) Screen Hep Bs Antigen Hep Bs Antibody Hep B Core Total Ab Hepatitis C Ab (EIA) HIV 1&2 Ab/P24 Ag 4thGn Imaging Radiology Impressions: ITS Impressions Forearm CT 09/11/22 07:30 IMPRESSION: Peripherally enhancing fluid collection in the region of the basilic vein at the level of the distal ulnar diaphysis measuring up to 2.9 cm in greatest dimension. Findings are consistent with abscess formation. No associated soft tissue air/emphysema. No acute osseous abnormality. No periosteal reaction or cortical erosion to suggest osteomyelitis. Medications Medications Current Medications Acetaminophen (Acetaminophen 325 Mg Tablet) 650 mg PO Q6H PRN PRN Reason: Pain, Moderate (Pain Scale 4-6 Last Admin: 09/13/22 06:03 Dose: 650 mg Clonidine HCl (Clonidine Hcl 0.1 Mg Tablet) 0.1 mg PO BID [facility]; Protocol Last Admin: 09/13/22 08:32 Dose: 0.1 mg Diphenhydramine HCl (Diphenhydramine Hcl 50 Mg/Ml Vial) 25 mg IVPUSH Q4H PRN PRN Reason: itching Last Admin: 09/13/22 06:02 Dose: 25 mg Enoxaparin Sodium (Enoxaparin Sodium 40 Mg/0.4 Ml Syringe) 40 mg SUBCUT Q24H COUNT INCLUDES THE [facility] Last Admin: 09/13/22 08:32 Dose: 40 mg Hydrocortisone (Hydrocortisone 1 % Cream 28.35 Gm Tube) 1 appl TOPICAL BID [place]; Protocol Last Admin: 09/13/22 08:37 Dose: 1 appl Vancomycin HCl 1,000 mg/ (Sodium Chloride) 270 mls @ 270 mls/hr IV Q8H COUNT INCLUDES THE [facility] Last Infusion: 09/13/22 11:02 Dose: Infused Methadone HCl (Methadone Hcl 20 Mg/2 Ml Oral.Conc) 45 mg PO DAILY COUNT INCLUDES THE [facility] Last Admin: 09/13/22 08:32 Dose: 45 mg Nicotine (Nicotine 21 Mg Patch.Td24) 21 mg TRANSDERMA DAILY COUNT INCLUDES THE [facility] Last Admin: 09/13/22 08:31 Dose: 21 mg Pharmacy Consult (Consult Rx Perform Med Rec) 1 each MISCELLANE ONCE PRN PRN Reason: Consult order Pharmacy Consult (Consult Rx Vancomycin Dosing) 1 each MISCELLANE DAILY PRN PRN Reason: Consult order Sodium Chloride (0.9 % Sodium Chloride Flush 3 Ml Syringe) 3 ml IVFLUSH QSHIFT COUNT INCLUDES THE [facility] Last Admin: 09/13/22 08:32 Dose: 3 ml Allergies Allergies Allergy/AdvReac Type Severity Reaction Status Date / Time Sulfa (Sulfonamide Allergy Unknown RASH Verified 09/11/22 01:43 Antibiotics) [SULFA (SULFONAMIDE ANTIBIOTICS)] sulfamethoxazole Allergy Unknown RASH Verified 09/11/22 01:43 [From BACTRIM] trimethoprim [From BACTRIM] Allergy Unknown RASH Verified 09/11/22 01:43 Assessment & Plan Assessment & Plan (1) Opioid use disorder: Status: Acute Code(s): F11.90 - Opioid use, unspecified, uncomplicated Assessment and Plan: patient to follow up with [facility] Total time managing care of this patient today _15___ minutes.
[2022-09-14 15:39] LABS: Tetanus Antitoxiod Antibody 0.54 IU/mL
== END 2022-09-13 12:00 | disposition home or self-care (01) | DRG 383 ==
LOC: HO.ED 07:11 → HO.EDOVER 08:46 → HO.S3 09:21
PROVIDERS: Nurse Practitioner Psychiatric/Mental Health; Admitting Provider Internal Medicine; Emergency Provider Internal Medicine; PCP Internal Medicine; Visit Provider Student in an Organized Health Care Education/Training Program
DX: L02.413 Cutaneous abscess of right upper limb (principal); B19.20 Unspecified viral hepatitis C without hepatic coma; E66.9 Obesity, unspecified; B95.62 Methicillin resistant Staphylococcus aureus infection as the cause of diseases classified elsewhere; L03.113 Cellulitis of right upper limb; F11.20 Opioid dependence, uncomplicated; F17.210 Nicotine dependence, cigarettes, uncomplicated; F19.10 Other psychoactive substance abuse, uncomplicated; Z20.822 Contact with and (suspected) exposure to COVID-19; Z71.6 Tobacco abuse counseling; Z88.2 Allergy status to sulfonamides; Z68.32 Body mass index [BMI] 32.0-32.9, adult
CPT/HCPCS: 36415; 73201; 80048; 80053; 80202; 80307; 82550; 83605; 85025; 85027; 86704; 86706; 86774; 86803; 87040; 87070; 87077; 87147; 87186; 87205; 87340; 87389; 87635; 90471; 90715; 96361; 96365; 96375; 99221; 99285; J1200; J1650; J2270; J2543; J3370; Q9967

== ENCOUNTER 2024-02-07 07:06 | Emergency (ER) | payer OTHER, SELFPAY ==
[2024-02-07 07:08] VITALS: BP 127/73; PULSE 111; RESP 18; TEMP 36.6; O2SAT 99; BMI 32.3
--- NOTE | 2024-02-07 08:08 | ED_ITS ---
HPI - General Adult General Chief complaint: General Medical Stated complaint: FB Vag Area Time Seen by Provider: 02/07/24 07:47 Source: patient and RN notes reviewed Mode of arrival: ambulatory Limitations: no limitations History of Present Illness ED Provider: Ani Abarca PA-C HPI narrative: This is a 38-year-old female, with no known medical problems, who presents emergency department with concerns that there is a tampon still stuck in her vaginal canal. Patient states that yesterday she placed a tampon vaginally at 11:00 a.m.. She states that she then had intercourse. She states that she does not recall taking out the tampon however is noticing a odor to the area. She reports that she is on day 4 or 5 of her menses. She denies concerns for or STI at this time. Denies any fevers or chills. No rashes no abdominal pain. No other complaints or concerns at this time. complaint: Foreign body Onset (ago): day(s) Radiation: non-radiation Pain Consistency: constant Relieving factors: none Exacerbating factors: none Associated symptoms: denies other symptoms Treatments prior to arrival: none Related Data Previous Rx's ?Medication ?Instructions ?Recorded doxycycline monohydrate 100 mg 100 mg PO BID #14 caps 09/13/22 capsule nicotine 21 mg/24 hr daily 21 mg transdermal DAILY #30 ea 09/13/22 transdermal patch doxycycline hyclate 100 mg capsule 100 mg PO BID 7 days #14 caps 02/07/24 metronidazole 500 mg tablet 500 mg PO BID 7 days #14 tabs 02/07/24 Allergies Allergy/AdvReac Type Severity Reaction Status Date / Time Sulfa (Sulfonamide Allergy Unknown RASH Verified 02/07/24 07:09 Antibiotics) [SULFA (SULFONAMIDE ANTIBIOTICS)] sulfamethoxazole Allergy Unknown RASH Verified 02/07/24 07:09 [From BACTRIM] trimethoprim [From BACTRIM] Allergy Unknown RASH Verified 02/07/24 07:09 Review of Systems Review of Systems: Yes all other systems are reviewed and are negative Constitutional: Constitutional: Reports as per HPI [facility] Past Medical History Medical History (Updated 02/07/24 @ 09:29 by MALATHI Cruz) Opioid use disorder Hepatitis C Methadone dependence Dog bite Migraines Social History Social History Household Members: Other Household Members Other:: with a friend Housing: Other Housing Other:: between housing Do you presently have visiting nurse or other home services: No Alcohol intake: current Patient Tobacco Use Status: Current everyday Tobacco user Tobacco use type: Cigarette Second Hand Smoke Exposure: No Substance Use Type: Crack/Cocaine and Heroin Advance Directives: No Advance Directives Information Provided: No Patient : No service: No Current occupational status: unemployed Physical Exam ED Vital Signs: Vital Signs - 24 hr 02/07/24 07:08 Temperature 98 F Pulse Rate 111 H Respiratory Rate 18 Blood Pressure 127/73 Pulse Oximetry 99 Oxygen Delivery Method Room Air BMI result Body Mass Index 32.3 Const General: cooperative, comfortable and no acute distress Orientation/consciousness: patient oriented x3 Limitations: no limitations HENMT Head: Yes normal to inspection, Yes normocephalic and Yes atraumatic Ears: hearing grossly normal bilaterally General nose exam: Normal external nose present Face and sinus: Yes normal facial exam Mouth: Normal oral and palatal mucosa present, oropharynx normal and moist mucous membranes Throat: Yes posterior oropharynx normal Eyes General: appearance normal, both eyes and all related structures Eyelids: Yes eyelids normal Conjunctivae: conjunctivae normal Sclerae: sclerae normal Pupils: Equal, round and reactive pupils present EOM: EOMs intact bilaterally Neck Neck: Yes normal visual inspection, Yes full ROM and Yes no lymphadenopathy Lymphatic: no lymphadenopathy noted Chest Chest palpation & inspection: normal inspection of the chest Resp Effort & Inspection: normal respiratory effort and able to speak in complete sentences Auscultation: clear to auscultation bilaterally, no crackles, no rales, no rhonchi and no wheezes Cardio Rate: regular rate Rhythm: regular rhythm Heart sounds: S1 normal heart sound present and S2 normal heart sound present GI Inspection: Yes normal to inspection Other: Speculum exam performed with RNAshley present at all times. No retained foreign body noted in the vaginal vault, yellow/green vaginal thin vaginal discharge noted, no cervical motion tenderness. Speculum Exam - Vagina: normal appearance of the vagina and normal palpation Speculum Exam - Cervix: normal appearance of the cervix and Cervical os closed Bimanual exam- vagina & uterus: normal palpation Skin General skin exam: no rashes or lesions noted Trauma: no lacerations or abrasions Wounds: no wounds Neuro General: patient oriented x3 and moves all extremities Cranial nerves: Yes Equal, round and reactive pupils present Extrem General: Yes normal to inspection Right upper extremity: normal to inspection Left upper extremity: normal to inspection Right lower extremity: normal to inspection Left lower extremity: normal to inspection Course Reevaluation(s) Reevaluation #1: swabs obtained, discussed with patient that there is no retained foreign body noted. She does have yellow/green vaginal discharge noted in the vaginal vault, she reports that she would like to be treated for STIs. Given ceftriaxone and doxy. Will cover for trich as well with flagyl. Patient is agreeable for treatment. Discussed return precautions. Pt stable for d/c. Medical Decision Making Medical Decision Making MDM Narrative: This is a 38-year-old female who presents emergency department as she feels as though her tampon his retained vaginally. On arrival, patient mildly tachycardic at 111bpm, likely due to anxiety regarding situation. She has no pelvic pain, fevers, chills or rashes. Patient has no evidence of foreign body retained, no evidence of toxic shock syndrome, will obtain swabs. Differential Diagnosis Differential Diagnoses: The differential diagnosis associated with the presentation includes Foreign body, vaginitis, STI, TSS Admission/Observation Consideration of admission/observation: Escalation of care including admission/observation considered Lab Data [facility] Lab Attestation statement: I reviewed the patient's lab results. Radiology Impression Discussion of test interpretation with radiology: I have reviewed the radiologist's reading. External Record Review External record reviewed: Inpatient record, Office record, Outpatient record, Prior outpatient labs, Prior outpatient radiology, Primary care record and Outside ED record Discharge Plan Discharge Clinical Impression: Vaginal discharge Patient Disposition: Home, Self-Care Instructions: Vaginal Discharge (ED) Additional Instructions: You were seen in the emergency department due to concerns for tampon stuck. There was no tampon in your vaginal canal today. We swabbed you for several infections. We are treating you prophylactically for your symptoms, please take prescribed medication as directed. We will call you if any of the results are positive. If any new or worsening symptoms occur including but not limited to fevers, chills, abdominal pain, chest pain, shortness of breath, please return for re- evaluation. Prescriptions: New doxycycline hyclate 100 mg capsule 100 mg PO BID 7 Days Qty: 14 0RF metronidazole 500 mg tablet 500 mg PO BID 7 Days Qty: 14 0RF No Action nicotine 21 mg/24 hr Patch 24 Hour 21 mg transdermal DAILY Qty: 30 0RF doxycycline monohydrate 100 mg capsule 100 mg PO BID Qty: 14 0RF Print Language: Indonesian
[2024-02-07] MEDS: cefTRIAXone sodium 500 MG, Lidocaine HCl 1 % MPF 1 ML IM (09:48)
[2024-02-07] MEDS: metroNIDAZOLE 500 MG TABLET PO (09:48)
[2024-02-07] MEDS: Doxycycline Monohydrate 100 MG CAPSULE PO (09:48)
[2024-02-07 09:53] VITALS: BP 137/79; PULSE 72; RESP 16; TEMP 36.4; O2SAT 97
[2024-02-07 10:14] VITALS: BP 137/79; PULSE 72; RESP 16; TEMP 36.4; O2SAT 97
[2024-02-07 11:22] LABS: Bacterial Vaginosis PCR POSITIVE (Negative); Candida Group PCR NOT DETECTED (Not Detect); Candida glab krusei PCR NOT DETECTED (Not Detect); Trichomonas vaginalis PCR DETECTED (Not Detect)
[2024-02-07 11:53] LABS: CT PCR NOT DETECTED (Not Detect.); NG PCR NOT DETECTED (Not Detect.)
== END 2024-02-07 10:20 | disposition home or self-care (01) ==
PROVIDERS: Physician Assistant Medical; Emergency Provider Student in an Organized Health Care Education/Training Program; PCP Internal Medicine
DX: N76.0 Acute vaginitis (principal); A59.01 Trichomonal vulvovaginitis; B19.20 Unspecified viral hepatitis C without hepatic coma
CPT/HCPCS: 0352U; 87491; 87591; 96372; 99284; J0696